=== PATIENT | female | born 1960 | race Two or more races ===

== ENCOUNTER 2024-04-28 01:29 | Inpatient (IN) | payer MEDICAID, SELFPAY ==
[2024-04-28] VITALS (8 sets, daily range): BP systolic 100–156; BP diastolic 65–89; PULSE 75–109; RESP 17–20; TEMP 35.9–36.7; O2SAT 92–100; BMI 24.9
--- NOTE | 2024-04-28 01:50 | EDNOTE_ITS ---
ED General RME/HPI General Chief complaint: Abdominal Pain Stated complaint: SEVERE ABD PAIN X30 MINS/VOMITING Time Seen by Provider: 04/28/24 01:46 Arrival date/time: 04/28/24 01:29 RME / HPI RME / HPI narrative: This section includes all my notes and documentations, including HPI, PE, and ED course. Kenneth Roca MD HPI: 63yo female with pmhx HTN brought in by her daughter presents to the ED for a chief complaint of lower abdominal pain x 30 minutes [employer]. Patient's daughter states the patient started complaining of severe lower abdominal pain 30 minutes [employer]UNDR[employer] HOU[employer]KEEPING [employer]IDE, reporting associated N/V. She states the patient had a small bowel movement prior to vomiting. She denies any fever, chills or any other associated symptoms. No other complaints reported. ROS: Respiratory: negative except as documented in HPI. Gastrointestinal: negative except as documented in HPI. Genitourinary: negative except as documented in HPI. Musculoskeletal: negative except as documented in HPI. Skin: negative except as documented in HPI. Neurological: negative except as documented in HPI. Physical Exam: General: Alert and oriented. In severe pain distress. Eyes: Conjunctivae and lids clear. ENT: No nasal congestion. Neck: Supple. Heart: RRR. Lungs: No respiratory distress. Good air movement. No rhonchi, wheezing, rales. Abdomen: Soft and severe diffuse tenderness. Decreased bowel sounds. No distension. No rebound or guarding. Back: No CVA tenderness. Skin: Warm and dry. Neuro: Alert and oriented X 3. Diagnostic tests remarkable for regional ileitis. Treatment here included Zofran and Dilaudid and Solumedrol. 0549: Discussed case with [Dr. Bautista] from [GI] regarding [consultation]. Discussed patients ED course, exam findings, labs, and radiology results. Recommended admission and will consult. 0555: Discussed case with our Hospitalist service regarding admission. Discussed patients ED course, exam findings, labs, and radiology results. Will accept the patient. Related Data Home Medications ?Medication ?Instructions ?Recorded ?Confirmed atorvastatin 20 mg tablet 20 mg PO HS 05/04/23 05/04/23 losartan 25 mg tablet 25 mg PO QDAY 05/04/23 05/04/23 Allergies Allergy/AdvReac Type Severity Reaction Status Date / Time No Known Allergies Allergy Verified 05/04/23 12:02 Review of Systems Review of Systems Systems Reviewed: All systems reviewed, normal except as documented Past Medical History Past Medical History NEUROLOGIC: Negative Neurological Disorders or Seizures CARDIAC: Positive Cardiac Disorders, Hypercholesterolemia and Hypertension; Negative Congestive Heart Failure RESPIRATORY: Negative Chronic Obstructive Pulmonary Disease (COPD) GASTROINTESTINAL: Negative Gastrointestinal Disorders GENITOURINARY: Negative Genitourinary Disorders or Renal Disease MUSCULOSKELETAL: Positive Musculoskeletal Disorders and Arthritis ENDOCRINE: Positive Endocrine Disorders and Diabetes Mellitus Type 2 (NO MEDS/DIET CONTROLLED); Negative Diabetes Mellitus Type 1 HEMATOLOGIC: Negative Blood Disorders OTHER HISTORY: Positive Chicken Pox, Measles and Mumps; Negative Autoimmune Disease, Blood Transfusions, Anesthesia Reactions or Cancer Social History SMOKING STATUS: Never smoker ED Exam Narrative Physical exam: As noted in HPI. Course Quality Measures none Orders Category Date Time Status COVID-19 Screening Questionnaire NOW Care 04/28/24 05:[address] Screening NOW Care 04/28/24 01:52 Active Decision to Admit X1 Care 04/28/24 05:59 Completed Saline [Insert IV] NOW Care 04/28/24 01:51 Active Straight [In and Out Catheter] X1 Care 04/28/24 01:51 Completed Consult to Gastroenterology Stat Cons 04/28/24 05:[address] abdomen pelvis w con Stat Exams 04/28/24 01:52 Completed Amylase Stat Lab 04/28/24 01:58 Completed C-Reactive Protein Stat Lab 04/28/24 01:58 Completed CBC Stat Lab 04/28/24 01:58 Completed CMP [Comprehensive Metabolic Panel] Stat Lab 04/28/24 01:58 Completed Drug Screen,Urine Stat Lab 04/28/24 04:47 Completed Lipase Stat Lab 04/28/24 01:58 Completed Magnesium Stat Lab 04/28/24 01:58 Completed Procalcitonin Stat Lab 04/28/24 01:58 Completed Sed Rate (ESR) Stat Lab 04/28/24 01:58 Completed UA [Urinalysis] Stat Lab 04/28/24 04:47 Completed HYDROmorphone INJ [Dilaudid Inj] Med 04/28/24 05:56 Discontinued 1 mg IVP X1 ONE HYDROmorphone INJ [Dilaudid Inj] Med 04/28/24 01:51 Discontinued 2 mg IM X1 ONE KCL 10% Liq UDC 15 ML Med 04/28/24 02:52 Discontinued 40 meq PO X1 ONE MethylPREDNISolone.* [SoluMEDROL Inj] Med 04/28/24 05:49 Discontinued 125 mg IVP X1 ONE Morphine Inj Med 04/28/24 03:26 Discontinued 4 mg IVP X1 ONE Ondansetron Inj [Zofran Inj] Med 04/28/24 01:51 Discontinued 4 mg IV X1 ONE Piper/Tazo Inj [Zosyn Inj] 3.375 gm Med 04/28/24 05:49 Discontinued Sodium Chloride 0.9% (P) [Ns 0.9% (P)] 50 ml IV X1 Vital Signs Vital signs: Vital Signs Temperature 98 F 04/28/24 01:48 Pulse Rate 78 04/28/24 01:48 Respiratory Rate 18 04/28/24 01:48 Blood Pressure 156/87 H 04/28/24 01:48 Pulse Oximetry (%) 99 04/28/24 01:48 Oxygen Delivery Method Room Air 04/28/24 01:48 Pulse ox is 99% on room air, which is normal according to my interpretation. [facility] Patient data External records reviewed:: [facility] previous records (Per chart review, patient has no relevant previous) Clinical information provided by:: family Social determinants that could affect healthcare access:: none Patient has the following chronic illnesses:: HTN How is presenting disease/condition affected by chronic disease/condition?: u neffected by Evaluation data The following diagnostics were reviewed and interpreted by me:: lab results and radiology exam(s) Lab and/or radiology exams considered but not ordered:: none Interpretation Summary: CT scan of the abdomen and pelvis with intravenous contrast (axial sections with sagittal and coronal reformats) April 28, 2024 0352 hours Clinical History: Severe abdominal pain, difficult to localize. Comparison: No prior study is available for comparison. Findings: Bibasilar dependent atelectasis is present. There is a calcified nodule in the right lower lobe, measuring 5 mm. The liver, gallbladder, pancreas, spleen, kidneys and adrenals are unremarkable. No evidence of bowel obstruction. There is thickening of the small bowel wall with mucosal enhancement and associated mesenteric fat stranding. A moderate amount of fecal material is present in the colon. The appendix is within normal limits (coronal image 87/155). There are multiple colonic diverticula without evidence of diverticulitis. There is no mesenteric or retroperitoneal adenopathy. The urinary bladder is unremarkable. The uterus is unremarkable. There is mild ascites. There is no free air. Degenerative changes are identified in the spine. Impression: 1. Findings consistent with severe ileitis with significant mesenteric inflammation and free fluid. 2. No evidence of bowel obstruction, free air or abscess. 3. Other findings as described above. This report has been electronically signed by: Juan Contreras MD. Medications Medications considered but not ordered:: none Medication administrations:: Medication Administration History Acetaminophen (Acetaminophen 325 Mg Tablet) 650 mg PO Q6H PRN PRN Reason: Mild Pain 1-3 or Fever >100.4 Stop: 05/28/24 06:32 Hydrocodone Bitart/Acetaminophen (Hydrocodone/Apap 5/325 Tablet) 1 tab PO Q4HR PRN PRN Reason: PAIN SCALE 4-6 (Moderate Stop: 05/03/24 06:32 Atorvastatin Calcium (Atorvastatin Calcium 20 Mg Tablet) 20 mg PO HS [facility] Stop: 05/28/24 20:59 Heparin Sodium (Porcine) (Heparin Sod Inj 5000 Unit/Ml Vial) 5,000 unit SC Q8HR [facility] Stop: 05/12/24 06:44 Last Admin: 04/28/24 13:10 Dose: 5,000 unit Documented By: ROSIE Co-signed By: RAFAEL Admin: 04/28/24 08:10 Dose: 5,000 unit Documented By: PETER Co-signed By: ZUHAIR Hydromorphone HCl (Hydromorphone Inj 2 Mg/Ml Vial) 1 mg IVP Q4HR PRN PRN Reason: PAIN SCALE 7-10 (Severe Stop: 05/03/24 06:32 Last Admin: 04/28/24 16:06 Dose: 1 mg Documented By: ROSIE Sodium Chloride (Ns) 1,000 mls @ 70 mls/hr IV .[id number] [facility] Stop: 05/28/24 06:44 Last Admin: 04/28/24 08:09 Dose: 70 mls/hr Documented By: PETER Piperacillin/Tazobactam/Dextrose (Zosyn) 50 mls @ 12.5 mls/hr IV Q8HR [facility] Stop: 05/05/24 11:29 Last Admin: 04/28/24 11:46 Dose: 12.5 mls/hr Documented By: ROSIE Losartan Potassium (Losartan Potassium 25 Mg Tablet) 25 mg PO QDAY [facility] Stop: 05/28/24 08:59 Last Admin: 04/28/24 08:10 Dose: 25 mg Documented By: ARF Methylprednisolone Sodium Succinate (Methylprednisolone Sod Succ 40 Mg Vial) 40 mg IVP Q12HR [facility] Stop: 05/05/24 20:59 Ondansetron HCl (Ondansetron Inj 2 Mg/Ml Inj 2 Ml) 4 mg IV Q6H PRN; Protocol PRN Reason: NAUSEA OR VOMITING Stop: 05/28/24 06:32 Pantoprazole Sodium (Pantoprazole 40 Mg Tablet) 40 mg PO QDAY [facility] Stop: 05/28/24 08:59 Last Admin: 04/28/24 08:10 Dose: 40 mg Documented By: ARF Discontinued Medications Hydromorphone HCl (Hydromorphone Inj 2 Mg/Ml Vial) 2 mg IM X1 ONE Stop: 04/28/24 01:52 Last Admin: 04/28/24 02:01 Dose: 2 mg Documented By: JUNE Hydromorphone HCl (Hydromorphone Inj 2 Mg/Ml Vial) 1 mg IVP X1 ONE Stop: 04/28/24 05:57 Last Admin: 04/28/24 06:07 Dose: 1 mg Documented By: JUNE Hydromorphone HCl (Hydromorphone Inj 2 Mg/Ml Vial) 1 mg IVP Q4HR PRN PRN Reason: PAIN Stop: 05/03/24 06:32 Piperacillin Sod/Tazobactam (Sod 3.375 gm/ Sodium Chloride) 50 mls @ 100 mls/hr IV X1 ONE Stop: 04/28/24 06:18 Last Infusion: 04/28/24 06:54 Dose: Infused Documented By: Admin: 04/28/24 06:17 Dose: 100 mls/hr Documented By: JUNE Methylprednisolone Sodium Succinate (Methylprednisolone Sod Succ 62.5 Mg/Ml 2ml Vial) 125 mg IVP X1 ONE Stop: 04/28/24 05:50 Last Admin: 04/28/24 06:13 Dose: 125 mg Documented By: JUNE Morphine Sulfate (Morphine Sulf Inj 10 Mg/Ml Vial) 4 mg IVP X1 ONE Stop: 04/28/24 03:27 Last Admin: 04/28/24 03:35 Dose: 4 mg Documented By: JUNE Ondansetron HCl (Ondansetron Inj 2 Mg/Ml Inj 2 Ml) 4 mg IV X1 ONE; Protocol Stop: 04/28/24 01:52 Last Admin: 04/28/24 02:02 Dose: 4 mg Documented By: JUNE Polyethylene Glycol/Electrolytes ([place] Morales/Nahco3/Efren/Peg (Golytely) 4,000 Ml Btl) 4,000 ml PO X1 ONE Stop: 04/28/24 06:42 Last Admin: 04/28/24 09:04 Dose: 1 bottle Documented By: ROSIE Potassium Chloride (Potassium Chloride 10% 20 Meq/15 Ml Udc) 40 meq PO X1 ONE Stop: 04/28/24 02:53 Last Admin: 04/28/24 03:35 Dose: 40 meq Documented By: JUNE Potassium Chloride (Potassium Chloride 20 Meq Tabcr) 40 meq PO X1 ONE Stop: 04/28/24 08:50 Last Admin: 04/28/24 09:04 Dose: 40 meq Documented By: ROSIE Potassium Chloride (Potassium Chloride 10% 20 Meq/15 Ml Udc) 40 meq PO X1 ONE Stop: 04/28/24 13:01 Last Admin: 04/28/24 13:10 Dose: 40 meq Documented By: ROSIE see above Consultations Consultation(s) initiated? (list below): Yes Diagnosis Differential Diagnosis ED Complaint MDM: constipation, SBO, dehydration, electrolyte abnormality Most likely diagnosis given after review of the tests above:: see below Admission Indicated Admission indicated?: not indicated Explain why admission is indicated or not indicated:: See HPI. Admission Request Was there a request for admission?: Yes Admission Attestation Admission request attestation: Discussed case with [] from Hospitalist service regarding admission. Discussed patients ED course, exam findings, labs, and radiology results. The Hospitalist [agrees,declines] to accept the patient for admission. Disposition Plan Disposition Plan: Admit Medical Decision Making Differential Diagnosis Differential Diagnosis: constipation, SBO, dehydration, electrolyte abnormality Lab Data 04/28/24 01:58 04/28/24 01:58 Labs: Lab Results 04/28/24 04/28/24 Range/Units 01:58 04:47 WBC 11.2 H (3.6-11.0) Thou/mm3 RBC 5.30 H (4.00-5.20) Miln/mm3 Hgb 13.9 (12.0-16.0) g/dL Hct 42.3 (36.0-46.0) % MCV 80 (80-100) fL MCH 26.2 (25.0-35.0) pg MCHC 32.9 (31.0-37.0) g/dl RDW Std Deviation 38.5 (36.4-46.3) fL Plt Count 271 (140-440) Thou/mm3 Neut % (Auto) 65 (37-80) % Lymph % (Auto) 27 (10-50) % Pike % (Auto) 6 (0-12) % Eos % (Auto) 0 (0-10) % Baso % (Auto) 0 (0-2.5) % Neut # (Auto) 7.4 (1.8-7.7) Thou/mm3 Lymph # (Auto) 3.1 (1.0-4.8) Thou/mm3 Pike # (Auto) 0.7 (0.0-0.8) Thou/mm3 Eos # (Auto) 0.1 (0.0-0.5) Thou/mm3 Baso # (Auto) 0.0 (0.0-0.2) Thou/mm3 Immature Gran # (Auto) 0.03 H (0.00-0.00) Thou/mm3 Absolute Nucleated RBC 0.00 (0.00-0.00) Thou/mm3 Immature Gran % 0 (0-0) % Nucleated RBC % 0 (0) /100 WBC ESR 19 (0-30) mm/hr Sodium 138 (136-145) mMol/L Potassium 3.0 L (3.4-5.1) mMol/L Chloride 106 (98-107) mMol/L Carbon Dioxide 23.2 (20.0-31.0) mMol/L Anion Gap 9 (7-16) BUN 21 (9-23) mg/dL Creatinine 0.7 (0.6-1.3) mg/dL Estim Creat Clear Calc 78.8 (>60) mL/min eGFR > 60 (60 - ) See Note BUN/Creatinine Ratio 30 H (12-20) Ratio Glucose 169 H (74-106) mg/dL Calculated Osmolality 282 (275-295) Calcium 9.9 (8.3-10.6) mg/dL Corrected Calcium 9.9 (8.5-10.1) mg/dL Magnesium 2.1 (1.6-2.6) mg/dL Total Bilirubin 0.9 (0.3-1.2) mg/dL AST 23 (0-34) U/L ALT 18 (10-49) U/L Alkaline Phosphatase 115 (46-116) U/L C-Reactive Prot, Quant < 0.4 (0.0-0.9) mg/dL Total Protein 7.3 (5.7-8.2) gm/dL Albumin 4.9 H (3.4-4.8) gm/dL Globulin 2.4 (2.3-3.5) gm/dL Albumin/Globulin Ratio 2.0 (1.2-2.2) Amylase 134 H (30-118) U/L Lipase 39 (12-53) U/L Procalcitonin 0.09 (0.0-0.49) ng/ml Ur Collection Type Clean Catch Urine Color Lt-Yellow (Lt Yel-Yel) Urine Clarity Clear (Clear/Hazy) Urine pH 5.0 (5.0-7.0) Ur Specific Gatzke 1.035 (1.001-1.035) Urine Protein Negative (Neg - Trace) Urine Glucose (UA) Negative (Negative) Urine Ketones 2+ A (Negative) Urine Blood Negative (Negative) Urine Nitrite Negative (Negative) Urine Bilirubin Negative (Negative) Urine Urobilinogen (Auto) Negative (0.0-1.0) mg/dL Ur Leukocyte Esterase Negative (Negative) Urine RBC 0 (0-3) /hpf Urine WBC 0 (0-5) /hpf Ur Squamous Epith Cells < 1 (0-5) /hpf Urine Bacteria None (None) Urine Opiates Screen Positive A (Negative) Urine Fentanyl Screen Negative (Negative) Ur Barbiturates Screen Negative (Negative) U Amphetamin/Meth Scrn Negative (Negative) U Benzodiazepines Scrn Negative (Negative) U Cocaine Metab Screen Negative (Negative) U Marijuana (THC) Screen Negative (Negative) Discharge Plan Plan Patient Disposition: Admit Acute Care w/in Hospital Problem List Clinical Impression: Ileitis, regional
--- NOTE | 2024-04-28 01:52 | XR_ITS ---
Examination: CT abdomen with intravenous contrast CT pelvis with intravenous contrast 2-D coronal reconstructions 2-D sagittal reconstructions Date and time of exam:April 28, 2024 0352 hrs. Indications: Severe abdominal pain beginning 30 minutes ago. CTDI: vol (mGy) 5.73 DLP: (mGycm) 284 Technique: Multiple axial sections of the abdomen and pelvis have been obtained. 64 slice high-resolution scanner used. 3 mm axial sections have been obtained, post intravenous injection 60 cc [id number] 2-D sagittal, coronal reconstructions obtained. Low dose protocols were performed. One or more of the following dose reduction techniques were used; automated exposure control, adjustment of the mA and/or KV according to patient size, use of iterative reconstruction technique. Findings: 5 mm calcified granuloma right middle lobe No focal liver or splenic lesions Mild fluid subcapsular to the liver and adjacent to the spleen No pancreatic mass No gallstones Normal adrenal glands No renal or ureteral calculi, no hydronephrosis Mild free fluid in the abdomen Multiple abnormal loops of small bowel, distended, wall thickening with edema adjacent to the bowel loops No definite pneumoperitoneum Normal appendix Colonic diverticulosis Atrophic uterus No adnexal mass Urinary bladder intact Moderate osteopenia Impression: Markedly abnormal small bowel loops, mildly distended, prominent wall thickening with edema adjacent to multiple small bowel loops, differential would include severe enteritis such as Crohn's disease, ischemic small bowel not excluded, clinical correlation advised, consider surgical consultation
[2024-04-28] MEDS: HYDROmorphone INJ 2 MG/ML VIAL IM (02:01)
[2024-04-28] MEDS: ONDANSETRON INJ 2 MG/ML INJ 2 ML 4 MG IV ×2 (02:02→20:11)
[2024-04-28 02:26] LABS: Basophils % (Auto) 0 % (0-2.5); Eosinophils # (Auto) 0.1 Thou/mm3 (0.0-0.5); Eosinophils % (Auto) 0 % (0-10); Hematocrit 42.3 % (36.0-46.0); Hemoglobin 13.9 g/dL (12.0-16.0); Immature Granulocytes % (Auto) 0 % (0-0); Immature Granulocytes Auto 0.03 Thou/mm3 (0.00-0.00); Lymphocytes # (Auto) 3.1 Thou/mm3 (1.0-4.8); Lymphocytes % (Auto) 27 % (10-50); Mean Corpuscular HGB Conc 32.9 g/dl (31.0-37.0); Mean Corpuscular Hemoglobin 26.2 pg (25.0-35.0); Mean Corpuscular Volume 80 fL (80-100); Monocytes # (Auto) 0.7 Thou/mm3 (0.0-0.8); Monocytes % (Auto) 6 % (0-12); Neutrophils # (Auto) 7.4 Thou/mm3 (1.8-7.7); Neutrophils % (Auto) 65 % (37-80); Nucleated Red Blood Cell % 0 /100 WBC (0); Platelet Count 271 Thou/mm3 (140-440); RDW Standard Deviation 38.5 fL (36.4-46.3); White Blood Count 11.2 Thou/mm3 (3.6-11.0)
[2024-04-28 02:44] LABS: Alanine Aminotransferase 18 U/L (10-49); Albumin, Serum 4.9 gm/dL (3.4-4.8); Alkaline Phosphatase 115 U/L (46-116); Amylase 134 U/L (30-118); Anion Gap 9 (7-16); Aspartate Amino Transferase 23 U/L (0-34); BUN/Creatinine Ratio 30 Ratio (12-20); Bilirubin,Total 0.9 mg/dL (0.3-1.2); Blood Urea Nitrogen 21 mg/dL (9-23); Calcium 9.9 mg/dL (8.3-10.6); Calcium (Corrected) 9.9 mg/dL (8.5-10.1); Carbon Dioxide 23.2 mMol/L (20.0-31.0); Chloride 106 mMol/L (98-107); Creatinine (Component) 0.7 mg/dL (0.6-1.3); Estimated Creatinine Clearance 78.8 mL/min (>60); Globulin 2.4 gm/dL (2.3-3.5); Glucose 169 mg/dL (74-106); Lipase 39 U/L (12-53); Magnesium 2.1 mg/dL (1.6-2.6); Osmolality,Calculated 282 (275-295); Sodium 138 mMol/L (136-145); Total Protein 7.3 gm/dL (5.7-8.2); eGFR > 60 See Note
[2024-04-28] MEDS: MORPHINE SULF INJ 10 MG/ML VIAL 4 MG IVP (03:35)
[2024-04-28] MEDS: POTASSIUM CHLORIDE 10% 20 MEQ/15 ML UDC 40 MEQ PO ×2 (03:35→13:10)
[2024-04-28 04:59] LABS: Collection Type, Urine Clean Catch; RBC,Urine 0 /hpf (0-3); WBC,Urine 0 /hpf (0-5)
[2024-04-28 05:16] LABS: Bilirubin,Urine Negative (Negative); Blood,Urine Negative (Negative); Clarity,Urine Clear (Clear/Hazy); Color,Urine Lt-Yellow (Lt Yel-Yel); Glucose, Urine Negative (Negative); Ketones,Urine 2+ (Negative); Leukocyte Esterase,Urine Negative (Negative); Nitrite,Urine Negative (Negative); Protein,Urine Negative (Neg - Trace); Squamous Epithelial Cell,Urine < 1 /hpf (0-5); Urobilinogen,Urine Negative mg/dL (0.0-1.0)
[2024-04-28 05:26] LABS: Specific Gravity,Urine 1.035 (1.001-1.035)
--- NOTE | 2024-04-28 05:45 | PRELIM_ITS ---
CT scan of the abdomen and pelvis with intravenous contrast (axial sections with sagittal and coronal reformats) April 28, 2024 0352 hoursClinical History: Severe abdominal pain, difficult to localiz e.Comparison: No prior study is available for comparison. Findings:Bibasilar dependent atelectasis i s present. There is a calcified nodule in the right lower lobe, measuring 5 mm.The liver, gallbladder , pancreas, spleen, kidneys and adrenals are unremarkable.No evidence of bowel obstruction. There is thickening of the small bowel wall with mucosal enhancement and associated mesenteric fat stranding. A moderate amount of fecal material is present in the colon. The appendix is within normal limits (c oronal image 87/155). There are multiple colonic diverticula without evidence of diverticulitis. Ther e is no mesenteric or retroperitoneal adenopathy.The urinary bladder is unremarkable. The uterus is u nremarkable. There is mild ascites. There is no free air.Degenerative changes are identified in the s pine. Impression:1. Findings consistent with severe ileitis with significant mesenteric inflammation and free fluid. 2. No evidence of bowel obstruction, free air or abscess. 3. Other findings as descri bed above. Report Electronically Signed By: Juan Contreras 04/28/2024 5:44:55 AM [EST]
[2024-04-28] MEDS: HYDROmorphone INJ 2 MG/ML VIAL 1 MG IVP ×3 (06:07→20:11)
[2024-04-28] MEDS: MethylPREDNISolone SOD SUCC 62.5 MG/ML 2ML VIAL 125 MG IVP (06:13)
[2024-04-28 06:15] LABS: Sed Rate (ESR) 19 mm/hr (0-30)
[2024-04-28] MEDS: PIPER/TAZO INJ 3.375 GM in SODIUM CHLORIDE 0.9% (P) 50 ML IV (06:17)
[2024-04-28 06:42] LABS: Procalcitonin 0.09 ng/ml (0.0-0.49)
--- NOTE | 2024-04-28 07:08 | PD.ADDHP ---
Addendum History & Physical Addendum Date of report being addended: 04/28/24 Narrative: 63-year-old female with history of hypertension and hyperlipidemia who presented with a chief complaint of nausea and vomiting. She was found to have severe ileitis and dehydration. Severe ileitis: Likely in setting of gastroenteritis. Started the patient on IV fluids. Management of nausea/vomiting/pain as needed. Contacted GI in the ED: May plan for colonoscopy. Will keep the patient on clear liquid diet. Hypertension: Resume home medication.
[2024-04-28] MEDS: SODIUM CHLORIDE 0.9% 1000 ML 1,000 ML 70 ML IV ×2 (08:09→21:45)
[2024-04-28] MEDS: HEPARIN SOD INJ 5000 UNIT/ML VIAL SC ×3 (08:10→21:46)
[2024-04-28] MEDS: PANTOPRAZOLE 40 MG TABLET PO (08:10)
[2024-04-28] MEDS: LOSARTAN POTASSIUM 25 MG TABLET PO (08:10)
--- NOTE | 2024-04-28 08:19 | PD.RESHP ---
Documentation for date of: 04/28/24 [facility] History of Present Illness History of present illness: cc: abdominal pain Patient is a 63-year-old female with a past medical history of hypertension & hyperlipidemia who presented to the emergency room from home with a chief complaint of diffuse abdominal pain. Patient rates pain 10 out of 10. Complaining of pain in all 4 quadrants but especially tender on left lower quadrant. Patient denied diarrhea, hematochezia or melena. Denied eating anything unusual such as leftover rice or male left sitting outside. Patient stated symptoms began yesterday with 2 episodes of emesis mostly food content that appeared watery. Patient denied hematemesis or hemoptysis. Stated symptoms has happened before, previous abdominal pain in March but pain was more mild. Denied fever chills. Denied chest pain. Patient had a recent upper respiratory viral illness 2 weeks ago. Patient works at a cafeteria for school. Admitted on 04/28/2024 for gastroenteritis and intractable abdominal pain. ER course: Vitals: Temperature 98 HR 78, RR 18, BP 156/87, SpO2 99% RA CBC (04/28/2024): WBC 11.2 CMP (04/28/2024): Na 138, K 3.0, BUN 21, Cr 0.7, Glucose 169 Abdomen/Pelvis (04/28/2024): Mild fluid subcapsular to the liver and adjacent to the spleen, No pancreatic mass, No gallstones, Mild free fluid in the abdomen, Multiple abnormal loops of small bowel, distended, wall thickening with edema adjacent to the bowel loops, Colonic diverticulosis K 40 meq PO X 1, Methylpredinisolone 125 mg IVP X [address]. Bautista consulted from ER PMH: -HTN -HLD -Diverticulosis -recent Upper Viral Infection, seen by PCP as outpatient Past Surgical History: Colonoscopy 2022-Diverticulosis Home Medication: Atorvastatin Losartan Social History: Denied Alcohol Use Denied illicit drug use Never smoker Allergies: None Code Status: Full Code Review of Systems Review of Systems Narrative Review of Systems: General appearance: NO weight change, NO fatigue, YES weakness, NO fever, NO chills, NO night sweats, No cough Skin: NO rash, NO itching, NO sores, NO moles HEENT: NO Trauma, NO nausea, YES vomiting mostly food content x2 episodes on 04/27/2024, NO visual changes, NO blurry vision, NO double vision, NO tinnitus, NO vertigo, NO ear discharge, NO rhinorrhea, NO stuffiness, NO sneezing, NO allergy, NO epistaxis. NO Hoarseness, NO sore throat, NO swollen neck. Cardiac: NO Palpitations, NO dyspnea on exertion, NO orthopnea, NO paroxysmal nocturnal dyspnea, NO edema Respiratory: NO Shortness of Breath, NO Wheezing, NO Cough, NO Sputum, NO hemoptysis GI:Yes appetite, NO nausea, YES vomiting-mostly food content, NO dysphagia, NO changes in bowel frequency, NO stool color, NO diarrhea, NO constipation, NO hemetemesis, NO hemorrhoids, NO melena, NO hematechezia, YES abdominal pain, NO jaundice Renal: NO frequency, NO hesitancy, NO urgency, NO hematuria, NO nocturia, NO incontinence MSK: NO muscle weakness, NO gout, NO arthritis, NO muscle stiffness Neuro: NO headaches, NO tremors, NO weakness, NO paralysis, NO seizures, NO loss of consciousness, NO numbness. Hem: NO anemia, NO easy bruising/bleeding, NO petechiae, NO purpura Endo: NO heat/cold intolerance, NO excessive sweating, NO polyuria, NO polydipsia, NO polyphagia, NO thyroid problems, NO diabetes Pysch: NO mood, NO anxiety, NO depression Exam Vital Signs Temp Pulse Resp BP Pulse Ox O2 Del Method O2 Flow Rate 97.9 F 79 18 140/89 H 100 Room Air 2 04/28/24 06:21 04/28/24 08:10 04/28/24 06:21 04/28/24 08:10 04/28/24 07:53 04/28/24 06:21 04/28/24 07:53 Narrative Exam General Appearance: Alert & Oriented X3, well-nourished female who is lying in bed in acute discomfort HEENT: Skull symmetrical and atraumatic. Conjunctivae pink and moist. Pupils equal, round, reactive to light and accommodation (PERRL). External ear without lesion or discharge. Straight, nares patient, dry mucosa pink, no discharge. No thyroid nodule appreciated. No cervical lymphadenopathy. Cardio: Normal Rate and Rhythm with S1 and S2 heart sounds. No murmurs or extra heart sounds auscultated. No bruits on carotid auscultation. No peripheral edema or cyanosis. Lungs: Symmetric with good expansion. Chest and back non-tender. Breath sounds vesicular without crackles, wheezing or rhonchi Abdomen: diffuse tender, but increased at left lower quadrant, Non-distended, Normal Reactive bowel sounds Neuro: Alert, cooperative, oriented to person, place, and time. Speech clear. CN grossly intact. Upper motor strength 5/5 and Lower motor strength 5/5. Sensation intact. Results: Labs 04/28/24 01:58 04/28/24 01:58 Labs: Short CBC 04/28/24 Range/Units 01:58 WBC 11.2 H (3.6-11.0) Thou/mm3 Hgb 13.9 (12.0-16.0) g/dL Hct 42.3 (36.0-46.0) % Plt Count 271 (140-440) Thou/mm3 BMP 04/28/24 01:58 Sodium 138 Potassium 3.0 L Chloride 106 Carbon Dioxide 23.2 BUN 21 Creatinine 0.7 Glucose 169 H Calcium 9.9 Liver Function 04/28/24 Range/Units 01:58 Total Bilirubin 0.9 (0.3-1.2) mg/dL AST 23 (0-34) U/L ALT 18 (10-49) U/L Alkaline Phosphatase 115 (46-116) U/L Albumin 4.9 H (3.4-4.8) gm/dL Urine 04/28/24 Range/Units 04:47 Urine Color Lt-Yellow (Lt Yel-Yel) Urine Clarity Clear (Clear/Hazy) Urine pH 5.0 (5.0-7.0) Ur Specific [place] 1.035 (1.001-1.035) Urine Protein Negative (Neg - Trace) Urine Glucose (UA) Negative (Negative) Quality Measures Quality Measures none Medications Home Medications and Allergies Home Medications ?Medication ?Instructions ?Recorded ?Confirmed ?Type atorvastatin 20 mg tablet 20 mg PO HS 05/04/23 05/04/23 History losartan 25 mg tablet 25 mg PO QDAY 05/04/23 05/04/23 History Allergies Allergy/AdvReac Type Severity Reaction Status Date / Time No Known Allergies Allergy Verified 05/04/23 12:02 Visit Medications Acetaminophen (Acetaminophen 325 Mg Tablet) 650 mg PO Q6H PRN PRN Reason: Mild Pain 1-3 or Fever >100.4 Stop: 05/28/24 06:32 Hydrocodone Bitart/Acetaminophen (Hydrocodone/Apap 5/325 Tablet) 1 tab PO Q4HR PRN PRN Reason: PAIN SCALE 4-6 (Moderate Stop: 05/03/24 06:32 Atorvastatin Calcium (Atorvastatin Calcium 20 Mg Tablet) 20 mg PO HS REPLACED BY [facility] Stop: 05/28/24 20:59 Heparin Sodium (Porcine) (Heparin Sod Inj 5000 Unit/Ml Vial) 5,000 unit SC Q8HR G[facility]RET Stop: 05/12/24 06:44 Last Admin: 04/28/24 08:10 Dose: 5,000 unit Hydromorphone HCl (Hydromorphone Inj 2 Mg/Ml Vial) 1 mg IVP Q4HR PRN PRN Reason: PAIN Stop: 05/03/24 06:32 Sodium Chloride (Ns) 1,000 mls @ 70 mls/hr IV .[id number] REPLACED BY [facility] Stop: 05/28/24 06:44 Last Admin: 04/28/24 08:09 Dose: 70 mls/hr Losartan Potassium (Losartan Potassium 25 Mg Tablet) 25 mg PO QDAY REPLACED BY [facility] Stop: 05/28/24 08:59 Last Admin: 04/28/24 08:10 Dose: 25 mg Ondansetron HCl (Ondansetron Inj 2 Mg/Ml Inj 2 Ml) 4 mg IV Q6H PRN; Protocol PRN Reason: NAUSEA OR VOMITING Stop: 05/28/24 06:32 Pantoprazole Sodium (Pantoprazole 40 Mg Tablet) 40 mg PO QDAY REPLACED BY [facility] Stop: 05/28/24 08:59 Last Admin: 04/28/24 08:10 Dose: 40 mg Discontinued Medications Hydromorphone HCl (Hydromorphone Inj 2 Mg/Ml Vial) 2 mg IM X1 ONE Stop: 04/28/24 01:52 Last Admin: 04/28/24 02:01 Dose: 2 mg Hydromorphone HCl (Hydromorphone Inj 2 Mg/Ml Vial) 1 mg IVP X1 ONE Stop: 04/28/24 05:57 Last Admin: 04/28/24 06:07 Dose: 1 mg Piperacillin Sod/Tazobactam (Sod 3.375 gm/ Sodium Chloride) 50 mls @ 100 mls/hr IV X1 ONE Stop: 04/28/24 06:18 Last Infusion: 04/28/24 06:54 Dose: Infused Methylprednisolone Sodium Succinate (Methylprednisolone Sod Succ 62.5 Mg/Ml 2ml Vial) 125 mg IVP X1 ONE Stop: 04/28/24 05:50 Last Admin: 04/28/24 06:13 Dose: 125 mg Morphine Sulfate (Morphine Sulf Inj 10 Mg/Ml Vial) 4 mg IVP X1 ONE Stop: 04/28/24 03:27 Last Admin: 04/28/24 03:35 Dose: 4 mg Ondansetron HCl (Ondansetron Inj 2 Mg/Ml Inj 2 Ml) 4 mg IV X1 ONE; Protocol Stop: 04/28/24 01:52 Last Admin: 04/28/24 02:02 Dose: 4 mg Polyethylene Glycol/Electrolytes ([place]/Nahco3/Efren/Peg (Golytely) 4,000 Ml Btl) 4,000 ml PO X1 ONE Stop: 04/28/24 06:42 Potassium Chloride (Potassium Chloride 10% 20 Meq/15 Ml Udc) 40 meq PO X1 ONE Stop: 04/28/24 02:53 Last Admin: 04/28/24 03:35 Dose: 40 meq Assessment & Plan Plan Patient is a 63-year-old female with a past medical history of hypertension & hyperlipidemia who was admitted on 04/28/2024 for gastroenteritis and intractable abdominal pain. #intractable abdominal pain #Mild Leukocytosis Etiology: given recent upper viral infection, gastroenterititis can not be ruled out. DDx: Inflammatory Bowel Disease, consider Crohns's vs acute mesenteric ischemia vs diverticulitis given location and history on previous Colonoscopy. Diagnostic: CBC (04/28/2024): WBC 11.2 CMP (04/28/2024): Na 138, K 3.0, BUN 21, Cr 0.7, Glucose 169 Abdomen/Pelvis (04/28/2024): Mild fluid subcapsular to the liver and adjacent to the spleen, No pancreatic mass, No gallstones, Mild free fluid in the abdomen, Multiple abnormal loops of small bowel, distended, wall thickening with edema adjacent to the bowel loops, Colonic diverticulosis Plan -Golytely -Follow up labs for 04/29/2024, consider evening K -Tylenol 650 mg PO PRN -[place] 5 -Dilaudid 1 mg IVP Q4HR PRN -CRP pending -NPO -consider Stool testing -GI following, Dr. Bautista, appreciate recommendations. #HTN -resume home medication, Atorvastatin 20 mg PO HS #HLD -resume home medicaiton, Losartan 25 mg PO Qday #Incidential finding, Pulmonary granuloma Plan: 5 mm calcified granuloma right middle lobe, outpatient Health Maintenance: Disp: Pt is currently admitted to floors for further management of abdominal pain, awaiting pending colonoscopy FEN: NPO DVT: on subQ heparin Code: Full Code - The patient's plan was discussed with attending Dr. Zelalem Sanchez MD PGY1 Internal Medicine Attending Provider Attestation/Addendum I reviewed labs, imaging, EKG, home medications and prior available records. Face to face evaluation was performed by me. I have personally examined the patient and discussed assessment and plan with the IM team. I reviewed the resident note and agree with the plan with exceptions as below. See my H&P addendum in the separate note.
[2024-04-28 08:34] LABS: Lactate (Lactic Acid) 1.5 mMol/L (0.4-2.0)
[2024-04-28] MEDS: POTASSIUM CHLORIDE 20 mEq TABCR 40 MEQ PO (09:04)
[2024-04-28] MEDS: NA SU/NAHCO3/KC/PEG (Golytely) 4,000 ML BTL 4000 ML PO (09:04)
--- NOTE | 2024-04-28 11:19 | PD.RESPRO ---
Documentation for date of: 04/28/24 Subjective Subjective Interval history: Patient interviewed and examined at bedside this AM accompanied by her daughter. No acute overnight events. Patient on exam appeared very somnolent but was interactive. Spoke with GI service who recommended not to start golytely and to instead administer patient steroids, start Clear liquid diet, pip/tazo. Potassium 3.0, replaced with 40 KCL PO this am and again this afternoon. Most likely from poor PO intake, will continue to monitor with AM labs. Exam Vital Signs Temp Pulse Resp BP Pulse Ox O2 Del Method O2 Flow Rate 97.9 F 82 20 140/89 H 100 Room Air 1 04/28/24 06:21 04/28/24 09:39 04/28/24 09:39 04/28/24 08:10 04/28/24 09:39 04/28/24 06:21 04/28/24 09:39 Narrative Exam General: Not in any visible or apparent acute distress, sick appearing, somnolent but arousable to vocal stimuli and interactive HEENT: NC/AT, dry mucous membranes, oropharynx clear Neck: Supple, No masses, No JVD, normal range of motion CVS: S1S2 Regular rate and rhythm, No murmurs, rubs or gallops Lungs: Normal respiratory effort, no wheezing rhonchi or rales, CTAB Abd: Soft, no tenderness to palpation, non distended Ext: No edema, warm well perfused, normal tone and ROM, strength and sensation intact, cap refill less than 2, +2 dp equal bilaterally Skin: Intact, no rashes, no lesions, no erythema Neuro: AOx3, no gross focal neurological deficits Objective Labs 04/29/24 05:25 04/29/24 10:20 Labs: Laboratory Results - last 24 hr 04/28/24 04/28/24 04/28/24 01:58 04:47 08:25 WBC 11.2 H RBC 5.30 H Hgb 13.9 Hct 42.3 MCV 80 MCH 26.2 MCHC 32.9 RDW Std Deviation 38.5 Plt Count 271 Neut % (Auto) 65 Lymph % (Auto) 27 [place] % (Auto) 6 Eos % (Auto) 0 Baso % (Auto) 0 Neut # (Auto) 7.4 Lymph # (Auto) 3.1 [place] # (Auto) 0.7 Eos # (Auto) 0.1 Baso # (Auto) 0.0 Immature Gran # (Auto) 0.03 H Absolute Nucleated RBC 0.00 Immature Gran % 0 Nucleated RBC % 0 ESR 19 Sodium 138 Potassium 3.0 L Chloride 106 Carbon Dioxide 23.2 Anion Gap 9 BUN 21 Creatinine 0.7 Estim Creat Clear Calc 78.8 eGFR > 60 BUN/Creatinine Ratio 30 H Glucose 169 H Calculated Osmolality 282 Lactic Acid 1.5 Calcium 9.9 Corrected Calcium 9.9 Magnesium 2.1 Total Bilirubin 0.9 AST 23 ALT 18 Alkaline Phosphatase 115 Total Protein 7.3 Albumin 4.9 H Globulin 2.4 Albumin/Globulin Ratio 2.0 Amylase 134 H Lipase 39 Procalcitonin 0.09 Ur Collection Type Clean Catch Urine Color Lt-Yellow Urine Clarity Clear Urine pH 5.0 Ur Specific [place] 1.035 Urine Protein Negative Urine Glucose (UA) Negative Urine Ketones 2+ A Urine Blood Negative Urine Nitrite Negative Urine Bilirubin Negative Urine Urobilinogen (Auto) Negative Ur Leukocyte Esterase Negative Urine RBC 0 Urine WBC 0 Ur Squamous Epith Cells < 1 Urine Bacteria None Quality Measures Quality Measures none Assessment & Plan Assessment Current Active Medications: Generic Name Dose Route Start Last Admin Trade Name Freq PRN Reason Stop Dose Admin Acetaminophen 650 mg 04/28/24 06:33 Acetaminophen 325 Mg Tablet PO 05/28/24 06:32 Q6H PRN Mild Pain 1-3 or Fever >100.4 Hydrocodone Bitart/Acetaminophen 1 tab 04/28/24 06:33 Hydrocodone/Apap 5/325 Tablet PO 05/03/24 06:32 Q4HR PRN PAIN SCALE 4-6 (Moderate Atorvastatin Calcium 20 mg 04/28/24 21:00 Atorvastatin Calcium 20 Mg Tablet PO 05/28/24 20:59 HS GARRET Heparin Sodium (Porcine) 5,000 unit 04/28/24 06:45 04/28/24 08:10 Heparin Sod Inj 5000 Unit/Ml Vial SC 05/12/24 06:44 5,000 unit Q8HR GARRET Administration Hydromorphone HCl 1 mg 04/28/24 06:33 Hydromorphone Inj 2 Mg/Ml Vial IVP 05/03/24 06:32 Q4HR PRN PAIN Sodium Chloride 1,000 mls @ 70 mls/hr 04/28/24 06:45 04/28/24 08:09 Ns IV 05/28/24 06:44 70 mls/hr .[id number] GARRET Administration Losartan Potassium 25 mg 04/28/24 09:00 04/28/24 08:10 Losartan Potassium 25 Mg Tablet PO 05/28/24 08:59 25 mg QDAY G[facility]RET Administration Ondansetron HCl 4 mg 04/28/24 06:33 Ondansetron Inj 2 Mg/Ml Inj 2 Ml IV 05/28/24 06:32 Q6H PRN NAUSEA OR VOMITING Protocol Pantoprazole Sodium 40 mg 04/28/24 09:00 04/28/24 08:10 Pantoprazole 40 Mg Tablet PO 05/28/24 08:59 40 mg QDAY GARRET Administration Potassium Chloride 40 meq 04/28/24 13:00 Potassium Chloride 10% 20 Meq/15 Ml Udc PO 04/28/24 13:01 X1 ONE Plan Assessment: Patient is a 63-year-old female with a past medical history of hypertension & hyperlipidemia who was admitted on 04/28/2024 for gastroenteritis and intractable abdominal pain. #Intractable abdominal pain - improving #Nausea/Vomiting - improving #Mild Leukocytosis Etiology: given recent upper viral infection, gastroenterititis can not be ruled out. DDx: Inflammatory Bowel Disease, consider Crohns's vs acute mesenteric ischemia vs diverticulitis given location and history on previous Colonoscopy. Diagnostic: CBC (04/28/2024): WBC 11.2 CMP (04/28/2024): Na 138, K 3.0, BUN 21, Cr 0.7, Glucose 169 Abdomen/Pelvis (04/28/2024): Mild fluid subcapsular to the liver and adjacent to the spleen, No pancreatic mass, No gallstones, Mild free fluid in the abdomen, Multiple abnormal loops of small bowel, distended, wall thickening with edema adjacent to the bowel loops, Colonic diverticulosis Plan -GI following, Dr. Bautista, recommendations as follows: Clear liquid diet IV Zosyn IV Solu-Medrol Pain control as necessary ANCA antibody Stool for culture and sensitivity Replace potassium Once patient is improves might need colonoscopy with intubation of the terminal ileum to get biopsies of the terminal ileum to establish a diagnosis Recommend surgical consultation in case the patient deteriorates may need surgical intervention at that time #HTN -resume home medication, Atorvastatin 20 mg PO HS #HLD -resume home medicaiton, Losartan 25 mg PO Qday #Incidential finding, Pulmonary granuloma Plan: 5 mm calcified granuloma right middle lobe, outpatient followup Health Maintenance: Disp: Pt is currently admitted to floors for further management of abdominal pain FEN: NPO DVT: on subQ heparin Code: Full Code Patient's case was discussed with supervising attending physician Dr. Carol Maddox M.D. Internal Medicine PGY-3 Attending Provider Attestation/Addendum Sumemr Martinez DO, attest that I was physically present for the simms portions of the service and evaluated the patient with the resident and I reviewed and discussed the case with the resident and agree with the resident's findings and plans of care as documented above Patient seen and evaluated this AM. Patient states she is very tired due to vomiting overnight. Patient reports pain began overnight around the periumbilical region. Patient denies any past surgical history or similar episodes in the past. Patient was given GoLytely this morning and had a few sips, but has not had a BM or passed gas. Patient denies any fevers or chills. She denies any recent sick contacts or eating out. Patient's daughter states that patient eats a high fiber diet and has lost 40lbs in the past year due to lifestyle/diet change. Case discussed with GI, recommends solumedrol 40mg IV BID and IV zosyn, DC golytely as colonoscopy will be planned once edema is improved with steroids. Patient states BMs are regular, no signs of IBS. Per daughter, patient had a colonoscopy a few years ago and was unremarkable. Denies any hematochezia or hematemesis.
[2024-04-28] MEDS: PIPER/TAZO 3.375 GM 50 ML IV ×2 (11:46→21:45)
[2024-04-28 12:25] LABS: C-Reactive Protein < 0.4 mg/dL (0.0-0.9)
[2024-04-28 13:00] LABS: Amphetamine/Methamp Scrn,U Negative (Negative); Barbiturate Screen,Urine Negative (Negative); Benzodiazepines Screen,Urine Negative (Negative); Benzoylecgonine Screen, Ur Negative (Negative); Fentanyl Screen,Urine Negative (Negative); Opiate Screen,Urine Positive (Negative); THC Screen,Urine Negative (Negative)
--- NOTE | 2024-04-28 13:47 | ESCONSULT_ITS ---
HPI Data of Consult Requesting Physician: Saji Masterson MD Primary Care Provider: Malcom Buckner MD Consult Narrative Reason for consult: Pain abdomen abnormal CTAP, nausea vomiting History of present illness: 63 years old female brought into the emergency room by her daughter with acute onset of severe lower abdominal pain accompanied by nausea vomit She did have a small bowel movement prior to coming to the ER In the emergency room her WBC count was 11.2 hemoglobin hematocrit 13.9 and 42.3 Glucose 169 Potassium 3.0 And was 134 but normal lipase at 39 CT scan of the abdomen pelvis with contrast showed thickening of the small bowel loops suggestive of regional ileitis Crohn's ileitis other differential diagnosis included ischemic bowel disease The ER physician had called me I asked him to admit the patient start the patient on IV Zosyn or the other combination would be metronidazole and IV ciprofloxacin and also start the patient on IV Solu-Medrol I evaluate the patient this morning No blood in the stool No hematemesis melena or hematochezia Patient had a colonoscopy April of last year which showed mild diverticulosis cc:: cc: Saji Masterson MD Review of Systems Review of Systems Systems Reviewed: All systems reviewed, normal except as documented Past Medical History Surgical History OTHER SURGICAL HX: Essential hypertension Hyperlipidemia Meds Home Medications and Allergies Home Medications ?Medication ?Instructions ?Recorded ?Confirmed ?Type atorvastatin 20 mg tablet 20 mg PO HS 05/04/23 05/04/23 History losartan 25 mg tablet 25 mg PO QDAY 05/04/23 05/04/23 History Allergies Allergy/AdvReac Type Severity Reaction Status Date / Time No Known Allergies Allergy Verified 05/04/23 12:02 Exam Vital Signs Temp Pulse Resp BP Pulse Ox O2 Del Method O2 Flow Rate 98.1 F 89 20 133/76 H 97 Room Air 1 04/28/24 12:00 04/28/24 12:00 04/28/24 12:00 04/28/24 12:00 04/28/24 12:00 04/28/24 12:00 04/28/24 09:39 Constitutional Comments: Alert oriented Routine Respiratory Exam Comments: Normal to auscultation Routine Abdominal Exam Comments: Soft nontender Results Labs 04/28/24 01:58 04/28/24 01:58 Labs: Short CBC 04/28/24 Range/Units 01:58 WBC 11.2 H (3.6-11.0) Thou/mm3 Hgb 13.9 (12.0-16.0) g/dL Hct 42.3 (36.0-46.0) % Plt Count 271 (140-440) Thou/mm3 BMP 04/28/24 01:58 Sodium 138 Potassium 3.0 L Chloride 106 Carbon Dioxide 23.2 BUN 21 Creatinine 0.7 Glucose 169 H Calcium 9.9 Liver Function 04/28/24 Range/Units 01:58 Total Bilirubin 0.9 (0.3-1.2) mg/dL AST 23 (0-34) U/L ALT 18 (10-49) U/L Alkaline Phosphatase 115 (46-116) U/L Albumin 4.9 H (3.4-4.8) gm/dL Urine 04/28/24 Range/Units 04:47 Urine Color Lt-Yellow (Lt Yel-Yel) Urine Clarity Clear (Clear/Hazy) Urine pH 5.0 (5.0-7.0) Ur Specific [place] 1.035 (1.001-1.035) Urine Protein Negative (Neg - Trace) Urine Glucose (UA) Negative (Negative) Assessment and Plan Additional Assessment & Plan Additional Plan: # Acute onset of abdominal pain with abnormal CT scan of the abdomen pelvis suggestive of regional ileitis rather infectious or inflammatory unknown at the moment Plan Clear liquid diet IV Zosyn IV Solu-Medrol Pain control as necessary ANCA antibody Stool for culture and sensitivity Replace potassium Once patient is improves might need colonoscopy with intubation of the terminal ileum to get biopsies of the terminal ileum to establish a diagnosis Recommend surgical consultation in case the patient deteriorates may need surgical intervention at that time Other medical problems include # Essential hypertension # Hyperlipidemia Thank you once again for the opportunity to participate in the care of this patient
[2024-04-28 15:16] LABS: C-Reactive Protein 0.7 mg/dL (0.0-0.9)
[2024-04-28] MEDS: ATORVASTATIN CALCIUM 20 MG TABLET PO (21:45)
[2024-04-29] VITALS (18 sets, daily range): BP systolic 104–150; BP diastolic 66–83; PULSE 78–126; RESP 17–99; TEMP 36.1–36.8; O2SAT 95–100
[2024-04-29] MEDS: PIPER/TAZO 3.375 GM 50 ML IV ×3 (05:48→21:51)
[2024-04-29 05:49] LABS: Basophils % (Auto) 0 % (0-2.5); Eosinophils % (Auto) 0 % (0-10); Immature Granulocytes % (Auto) 0 % (0-0); Immature Granulocytes Auto 0.07 Thou/mm3 (0.00-0.00); Nucleated Red Blood Cell % 0 /100 WBC (0)
[2024-04-29] MEDS: HEPARIN SOD INJ 5000 UNIT/ML VIAL SC ×3 (05:49→21:51)
[2024-04-29 07:03] LABS: Hematocrit 47.4 % (36.0-46.0); Hemoglobin 15.5 g/dL (12.0-16.0); Lymphocytes # (Auto) 1.3 Thou/mm3 (1.0-4.8); Lymphocytes % (Auto) 7 % (10-50); Mean Corpuscular HGB Conc 32.7 g/dl (31.0-37.0); Mean Corpuscular Hemoglobin 26.4 pg (25.0-35.0); Mean Corpuscular Volume 81 fL (80-100); Monocytes # (Auto) 0.9 Thou/mm3 (0.0-0.8); Monocytes % (Auto) 5 % (0-12); Neutrophils % (Auto) 88 % (37-80); Platelet Count 259 Thou/mm3 (140-440); RDW Standard Deviation 40.1 fL (36.4-46.3); Red Blood Count 5.87 Miln/mm3 (4.00-5.20); White Blood Count 18.2 Thou/mm3 (3.6-11.0)
[2024-04-29 07:28] LABS: Anion Gap 7 (7-16); BUN/Creatinine Ratio 23 Ratio (12-20); Blood Urea Nitrogen 23 mg/dL (9-23); Calcium 9.4 mg/dL (8.3-10.6); Carbon Dioxide 20.2 mMol/L (20.0-31.0); Chloride 104 mMol/L (98-107); Estimated Creatinine Clearance 55.1 mL/min (>60); Glucose 244 mg/dL (74-106); Osmolality,Calculated 274 (275-295); Sodium 131 mMol/L (136-145); eGFR > 60 See Note
[2024-04-29 07:41] LABS: Potassium 6.7 mMol/L (3.4-5.1)
--- NOTE | 2024-04-29 07:54 | EKG_ITS ---
[facility] Test Date: 2024-04-29 Pat Name: ELY CLARK Department: Room: 82A Gender: Female Chemistry Lab Instructor: CHANDRA : 1960 Requested By: Conrado Phillip Order Number: [id number] Reading MD: Conrado Phillip Measurements Intervals [place] Rate: 109 P: 63 TN: 130 QRS: 56 QRSD: 73 T: 31 QT: 301 QTc: 406 Interpretive Statements SINUS TACHYCARDIA NONSPECIFIC ST & T-WAVE ABNORMALITY ABNORMAL RHYTHM ECG Compared to ECG 04/03/2022 09:39:56 T-wave abnormality now present Sinus rhythm no longer present /store/S0/[id number]
[2024-04-29] MEDS: DEXTROSE 50%-WATER INJ 50 ML SYRINGE IV ×2 (08:13→11:36)
[2024-04-29] MEDS: INSULIN HUM REGULAR 1 UNIT/0.01 ML (PER UNIT) 10 UNIT IV ×2 (08:13→11:36)
[2024-04-29] MEDS: PANTOPRAZOLE 40 MG TABLET PO (08:14)
[2024-04-29] MEDS: CALCIUM GLUC/NS 1000MG IVPB 1,000 MG/50 ML BAG 50 MG IV (08:32)
[2024-04-29] MEDS: ALBUTEROL RT 2.5 MG/0.5 ML NEBU 10 MG INH (11:04)
[2024-04-29 11:11] LABS: Albumin, Serum 3.9 gm/dL (3.4-4.8); Anion Gap 7 (7-16); BUN/Creatinine Ratio 23 Ratio (12-20); Blood Urea Nitrogen 21 mg/dL (9-23); Calcium 10.3 mg/dL (8.3-10.6); Calcium (Corrected) 10.4 mg/dL (8.5-10.1); Chloride 103 mMol/L (98-107); Creatinine (Component) 0.9 mg/dL (0.6-1.3); Estimated Creatinine Clearance 61.3 mL/min (>60); Glucose 208 mg/dL (74-106); Osmolality,Calculated 271 (275-295); Phosphorous 1.8 mg/dL (2.4-5.1); Sodium 131 mMol/L (136-145); eGFR > 60 See Note
[2024-04-29 11:13] LABS: Potassium 6.9 mMol/L (3.4-5.1)
[2024-04-29] MEDS: SOD POLYSTYRENE SULFON SUSP 15 GM/60 ML BTL 30 GM PO (11:35)
--- NOTE | 2024-04-29 12:41 | ESPR_ITS ---
<Statement entered by Ronnell Krishnan MD - 04/29/24 14:13> Senior Resident Attestation: I supervised/discussed management plan with property management intern physician Dr. Bhatia, and was involved in the care of this patient. I personally saw and examined the patient and discussed the assessment and plan with the entire medicine team, including my attending. I agree with the assessment and plan as documented. Patient was seen and examined at the bedside. No acute overnight events. Patient had significant hyperkalemia of 6.7 today and was given insulin albuterol, repeat showed potassium 6.9 she was given additional insulin and Kayexalate, also was given mineral oil enema, will repeat potassium. Will continue Zofran for nausea control. Will continue Zosyn, methylprednisolone, clear liquid diet as of now. Patient's care was discussed with attending physician, Dr. Medina. Ronnell Krishnan MD PGY-2. Documentation for date of: 04/29/24 Subjective Subjective Interval history: Patient was seen at bedside this morning. No overnight events. Patient was found to be hyperkalemic on morning labs and she was given insulin 10 units x 1 with dextrose and 1 g calcium as well as an EKG. EKG did not show any ST changes or peaked T waves. She did not have any chest pain or shortness of breath during this time. On repeat labs patient again was hyperkalemic therefore Kayexalate x 1 was given and she was already getting her albuterol treatment. Around noon time she still had not passed a bowel movement therefore enema was given as well. No other complaints at this time. Exam Vital Signs Temp Pulse Resp BP Pulse Ox O2 Del Method O2 Flow Rate 98.3 F 112 H 18 150/66 H 99 Room Air 1 04/29/24 12:00 04/29/24 12:00 04/29/24 12:00 04/29/24 12:00 04/29/24 12:00 04/29/24 12:00 04/28/24 09:39 Narrative Exam General: A/O x3, no acute distress, well-nourished, well-developed Eyes: PERRL, EOMI. Anicteric, vision grossly intact. Ears: No ear pain, no ear discharge, Hearing grossly intact. Nose: No nasal discharge. Mouth/Throat: Dry mucous membranes, no redness, no lesions. Neck: Neck supple, non-tender, no cervical lymphadenopathy. Lungs: Clear PRISCA to auscultation and percussion, No accessory muscle use. Cardio: Normal S1/S2, regular rhythm, no murmurs, no JVD. Abdomen: Soft, mild diffuse tenderness, no palpable masses, peristalsis present, no guarding or rebound. Extremities: Symmetrical, no significant deformities, no peripheral edema , non-tender, peripheral pulses presents. Skin: No rashes, no lesions, warm to touch. Neuro: No focal neurological deficits. motor and sensory intact Psych: Cooperative, appropriate mood and effect. Objective Labs 04/29/24 05:25 04/29/24 10:20 Labs: Laboratory Results - last 24 hr 04/28/24 04/28/24 04/29/24 04:47 14:34 05:25 WBC 18.2 H D RBC 5.87 H Hgb 15.5 Hct 47.4 H MCV 81 MCH 26.4 MCHC 32.7 RDW Std Deviation 40.1 Plt Count 259 Neut % (Auto) 88 H Lymph % (Auto) 7 L [place] % (Auto) 5 Eos % (Auto) 0 Baso % (Auto) 0 Neut # (Auto) 16.0 H Lymph # (Auto) 1.3 [place] # (Auto) 0.9 H Eos # (Auto) 0.0 Baso # (Auto) 0.0 Immature Gran # (Auto) 0.07 H Absolute Nucleated RBC 0.00 Immature Gran % 0 Nucleated RBC % 0 Sodium Potassium Chloride Carbon Dioxide Anion Gap BUN Creatinine Estim Creat Clear Calc eGFR BUN/Creatinine Ratio Glucose Calculated Osmolality Calcium Corrected Calcium Phosphorus C-Reactive Prot, Quant 0.7 Albumin Urine Opiates Screen Positive A Urine Fentanyl Screen Negative Ur Barbiturates Screen Negative U Amphetamin/Meth Scrn Negative U Benzodiazepines Scrn Negative U Cocaine Metab Screen Negative U Marijuana (THC) Screen Negative 04/29/24 04/29/24 06:42 10:20 WBC RBC Hgb Hct MCV MCH MCHC RDW Std Deviation Plt Count Neut % (Auto) Lymph % (Auto) [place] % (Auto) Eos % (Auto) Baso % (Auto) Neut # (Auto) Lymph # (Auto) [place] # (Auto) Eos # (Auto) Baso # (Auto) Immature Gran # (Auto) Absolute Nucleated RBC Immature Gran % Nucleated RBC % Sodium 131 L 131 L Potassium 6.7 H* D 6.9 H* Chloride 104 103 Carbon Dioxide 20.2 21.0 Anion Gap 7 7 BUN 23 21 Creatinine 1.0 0.9 Estim Creat Clear Calc 55.1 L 61.3 eGFR > 60 > 60 BUN/Creatinine Ratio 23 H 23 H Glucose 244 H D 208 H Calculated Osmolality 274 L 271 L Calcium 9.4 10.3 Corrected Calcium 10.4 H Phosphorus 1.8 L C-Reactive Prot, Quant Albumin 3.9 D Urine Opiates Screen Urine Fentanyl Screen Ur Barbiturates Screen U Amphetamin/Meth Scrn U Benzodiazepines Scrn U Cocaine Metab Screen U Marijuana (THC) Screen Quality Measures Quality Measures none Assessment & Plan Assessment Current Active Medications: Generic Name Dose Route Start Last Admin Trade Name Freq PRN Reason Stop Dose Admin Acetaminophen 650 mg 04/28/24 06:33 Acetaminophen 325 Mg Tablet PO 05/28/24 06:32 Q6H PRN Mild Pain 1-3 or Fever >100.4 Hydrocodone Bitart/Acetaminophen 1 tab 04/28/24 06:33 Hydrocodone/Apap 5/325 Tablet PO 05/03/24 06:32 Q4HR PRN PAIN SCALE 4-6 (Moderate Atorvastatin Calcium 20 mg 04/28/24 21:00 04/28/24 21:45 Atorvastatin Calcium 20 Mg Tablet PO 05/28/24 20:59 20 mg HS GARRET Administration Heparin Sodium (Porcine) 5,000 unit 04/28/24 06:45 04/29/24 05:49 Heparin Sod Inj 5000 Unit/Ml Vial SC 05/12/24 06:44 5,000 unit Q8HR GARRET Administration Hydromorphone HCl 1 mg 04/28/24 12:31 04/28/24 20:11 Hydromorphone Inj 2 Mg/Ml Vial IVP 05/03/24 06:32 1 mg Q4HR PRN Administration PAIN SCALE 7-10 (Severe Sodium Chloride 1,000 mls @ 70 mls/hr 04/28/24 06:45 04/28/24 21:45 Ns IV 05/28/24 06:44 70 mls/hr .[id number] GARRET Administration Piperacillin/Tazobactam/Dextrose 50 mls @ 12.5 mls/hr 04/28/24 11:30 04/29/24 05:48 Zosyn IV 05/05/24 11:29 12.5 mls/hr Q8HR GARRET Administration Losartan Potassium 25 mg 04/28/24 09:00 04/28/24 08:10 Losartan Potassium 25 Mg Tablet PO 05/28/24 08:59 25 mg QDAY GARRET Administration Methylprednisolone Sodium Succinate 40 mg 04/28/24 21:00 04/29/24 08:13 Methylprednisolone Sod Succ 40 Mg Vial IVP 05/05/24 20:59 40 mg Q12HR GARRET Administration Ondansetron HCl 4 mg 04/28/24 06:33 04/28/24 20:11 Ondansetron Inj 2 Mg/Ml Inj 2 Ml IV 05/28/24 06:32 4 mg Q6H PRN Administration NAUSEA OR VOMITING Protocol Pantoprazole Sodium 40 mg 04/28/24 09:00 04/29/24 08:14 Pantoprazole 40 Mg Tablet PO 05/28/24 08:59 40 mg QDAY GARRET Administration Sodium Chloride 3 ml 04/29/24 10:17 Sodium Chloride Rt Emily 0.9% 3 Ml Nebu INH 05/29/24 10:16 PRN PRN SOLN Plan 63-year-old female with past medical history of hypertension and hyperlipidemia was admitted to the hospital on 04/28/2024 for intractable abdominal pain and gastroenteritis. #Hyperkalemia ?Patient initially came in hypokalemic and received a total of 120 mEq of potassium ?Potassium this morning was 6.7 ?Repeat potassium 6.9 after 10 units of IV insulin, amp of D50, and 1 g of calcium ?EKG did not show any peaked T waves Plan: ?Kayexalate 30 g x 1 ?Mineral oil edema x1 ?Albuterol x 1 ?Additional 10 units IV insulin plus amp of D50 ?Repeat labs, will follow-up on results ?Will continue to monitor #Intractable abdominal pain #Gastroenteritis #Constipation #IBD? # Leukocytosis ?Patient came in with chief complaint of diffuse abdominal pain rating a 10 out of 10, but no diarrhea or hematochezia. ?Patient states he has been constipated since the day prior to admission ?DDx IBD such as Crohn's versus mesenteric ischemia ?Abdomen/pelvis CT on 04/28/2024 show markedly abnormal small bowel loops and mildly distended, prominent wall thickening with edema adjacent to multiple small bowel loops. ?WBC 18.2 today, likely reactive given patient is on steroids Plan: ?Mineral oil enema x 1 ?Continue IV Solu-Medrol [04/28/2024?] ?Continue Zosyn [04/28/2024?] ?Stool cultures and an Antibody still pending ?Patient will most likely undergo colonoscopy later during her hospital course ?GI consulted, appreciate recommendations ?Will continue to monitor #Hx of HTN ?Held losartan 25 mg daily as patient was hyperkalemic #Hx of HLD ?Continue atorvastatin 20 mg p.o. at bedtime #Incidental finding, pulmonary granuloma ?5 mm granuloma of right middle lobe ?Follow-up outpatient Disposition: Patient seen in med surg, no BM yet, gave mineral oil enema and kayexalate 30g x1, treating for hyperkalemia Diet: Clear liquid GI prophylaxis: protonix DVT prophylaxis: heparin sc Code: Full Case disclosed with Attending Dr. Medina and My senior Dr. Krishnan PGY2. Conrado Phillip PGY1 Attending Provider Attestation/Addendum I, Summer Medina, DO, attest that I was physically present for the simms portions of the service and evaluated the patient with the resident and I reviewed and discussed the case with the resident and agree with the resident's findings and plans of care as documented above Patient seen and evaluated this a.m. Daughters are at bedside. Patient is much more alert today and states that the pain has improved. However, patient has not had a bowel movement or been able to pass gas. She reports some pain on palpation of her mid abdomen. She has been having a lot of burping, but denies any nausea or vomiting. Patient remains on steroids and IV Zosyn. Potassium was 6.7 up trended to 6.9 despite receiving insulin. She was receiving albuterol, reevaluation. Will give another 10 units of insulin due to hyperkalemia. Patient was able to tolerate clear liquid diet. Okay to start bowel regimen per GI to lower potassium level. However, patient had nausea after receiving lactulose and began vomiting. Repeat KUB shows dilatation of colon concerning for SBO. Will place NG tube, n.p.o. and place NG tube to suction. Surgery was consulted and recommends Gastrografin small bowel follow- through.
[2024-04-29] MEDS: ONDANSETRON INJ 2 MG/ML INJ 2 ML 4 MG IV ×2 (14:02→19:36)
--- NOTE | 2024-04-29 14:06 | XR_ITS ---
Examination: Abdomen AP single view Technique: AP portable supine abdomen, single view Exam date and time: April 29, 2024 1418 hrs. Indications: Onset abdominal pain today. Findings: Large amounts of stool throughout the colon There are air distended small bowel loops in the midabdomen No free air Moderate osteopenia Impression: Significantly air distended small bowel loops, please see the CT abdomen pelvis report April 28, 2024 indicating markedly abnormal small bowel loops, distended with wall thickening
--- NOTE | 2024-04-29 15:11 | XR_ITS ---
' KV examination: AP chest single view Technique one AP portable semiupright chest single view Exam date and time: May 29, 2024 1527 hrs. Indications: Post orogastric tube placement Findings: Orogastric tube tip in the stomach satisfactory position Opacity right base consistent with pneumonia Normal heart size Moderate osteopenia Impression: Orogastric tube tip in the stomach satisfactory position
[2024-04-29 15:16] LABS: Potassium 5.4 mMol/L (3.4-5.1)
[2024-04-29] MEDS: SODIUM CHLORIDE 0.9% 1000 ML 1,000 ML 70 ML IV (15:28)
[2024-04-29] MEDS: ALBUTEROL RT 2.5 MG/0.5 ML NEBU 20 MG INH (15:47)
--- NOTE | 2024-04-29 17:03 | PD.SURCONS ---
HPI Consult details Consult date: 04/29/24 Reason for consultation narrative: Patient was seen in consultation for a possible small bowel obstruction associated with abdominal pain History of present illness: Patient speaks only [place] and the history was obtained by daughters who are at the bedside. Patient was in his usual health until around 1:00 in the morning on Tuesday morning when she started he started experiencing pain over the lower abdomen. She had vomited once and she was brought to the emergency room. Patient had a normal bowel movement around 11:00 Tuesday night. Since then she has not passed gas or had any bowel movement. Patient was in severe pain which she described as 10 out of 10 and was given narcotics. Patient also was given some Solu-Medrol because x-ray reading suggesting enteritis. But the patient denies any history of chronic inflammatory disease or diarrhea or Crohn's disease or ulcerative colitis. This is the first episode of abdominal pain for this patient. She underwent colonoscopy for screening 1 year ago and it was normal. Her other medical problem consisted of possible hypertension and cholesterol. Past surgery none Past Medical History Past Medical History NEUROLOGIC: Negative Neurological Disorders or Seizures CARDIAC: Positive Hypercholesterolemia and Hypertension; Negative Cardiac Disorders or Congestive Heart Failure RESPIRATORY: Negative Chronic Obstructive Pulmonary Disease (COPD) or Asthma GASTROINTESTINAL: Negative Gastrointestinal Disorders GENITOURINARY: Negative Genitourinary Disorders or Renal Disease MUSCULOSKELETAL: Positive Musculoskeletal Disorders and Arthritis ENDOCRINE: Positive Endocrine Disorders and Diabetes Mellitus Type 2 (Pt reports Per-diabetic); Negative Diabetes Mellitus Type 1 HEMATOLOGIC: Negative Blood Disorders or Sickle Cell Disease OTHER HISTORY: Positive Chicken Pox, Measles and Mumps; Negative Autoimmune Disease, Blood Transfusions, Anesthesia Reactions or Cancer Surgical History OTHER SURGICAL HX: Essential hypertension Hyperlipidemia Social History SMOKING STATUS: Never smoker Meds Home Medications and Allergies Home Medications ?Medication ?Instructions ?Recorded ?Confirmed ?Type atorvastatin 20 mg tablet 20 mg PO HS 05/04/23 05/04/23 History losartan 25 mg tablet 25 mg PO QDAY 05/04/23 05/04/23 History Allergies Allergy/AdvReac Type Severity Reaction Status Date / Time No Known Allergies Allergy Verified 05/04/23 12:02 Exam Vital Signs Temp Pulse Resp BP Pulse Ox O2 Del Method O2 Flow Rate 98.3 F 115 H 20 150/66 H 100 Room Air 1 04/29/24 12:00 04/29/24 15:50 04/29/24 15:50 04/29/24 12:00 04/29/24 15:50 04/29/24 12:00 04/28/24 09:39 Narrative Exam Physical examination revealed a thin built female who is 5 feet 4 inches tall weighing 145 pounds with BMI of 25 Constitutional Constitutional: mild distress Routine Cardiovascular Exam Comments: Patient has sinus tachycardia with a heart rate around 120 Routine Abdominal Exam Comments: Abdomen is not distended but there is some localized tenderness over the left side as well as in the suprapubic region. There is no rigidity or rebound tenderness to suggest any peritonitis. Bowel sounds are quite active. Rectal deferred because of the recent colonoscopy performed by me last year. Routine Rectal Exam Comments: Deferred Routine Exam Comments: Deferred Results Results: Laboratory Laboratory Narrative: Patient's laboratory workup showed a WBC was around 11,000 which now went up to 18,000 today probably due to steroid patient for some reason had hyperkalemia yesterday which was corrected and it is now 5.4. Patient also has elevated glucose in 200s. BUN/creatinine are normal Results: Imaging Imaging narrative: CT scan of the abdomen showed thickening of the small bowel loops in the pelvis with edema suggesting enteritis or ischemia. Assessment & Plan Additional Assessment Additional comments: Impression: Abdominal pain of unknown etiology Rule out small bowel disease Hypertension Hyperglycemia Hyperkalemia Plan Plan: Patient does not seem to be having classical pictures of small bowel disease. I do not see significantly dilated small bowel loops on the plain film even though they are slightly prominent on the CT scan. We shall however get a Gastrografin study to rule out any abnormality and any obstruction. There are no indications to surgically intervene at this time because the diagnosis is not established yet. I will follow the patient with you.
--- NOTE | 2024-04-29 17:29 | PD.SURPROG ---
Documentation for date of: 04/29/24 Subjective Subjective Brief History: Patient speaks only Bulgarian and the history was obtained by daughters who are at the bedside. Patient was in his usual health until around 1:00 in the morning on Tuesday morning when she started he started experiencing pain over the lower abdomen. She had vomited once and she was brought to the emergency room. Patient had a normal bowel movement around 11:00 Tuesday night. Since then she has not passed gas or had any bowel movement. Patient was in severe pain which she described as 10 out of 10 and was given narcotics. Patient also was given some Solu-Medrol because x-ray reading suggesting enteritis. But the patient denies any history of chronic inflammatory disease or diarrhea or Crohn's disease or ulcerative colitis. This is the first episode of abdominal pain for this patient. She underwent colonoscopy for screening 1 year ago and it was normal. Her other medical problem consisted of possible hypertension and cholesterol. Past surgery none Narrative: The patient is eating better and tolerating it well. He is in good spirits Exam Vital Signs Temp Pulse Resp BP Pulse Ox O2 Del Method O2 Flow Rate 98.3 F 115 H 20 150/66 H 100 Room Air 1 04/29/24 12:00 04/29/24 15:50 04/29/24 15:50 04/29/24 12:00 04/29/24 15:50 04/29/24 12:00 04/28/24 09:39 Vital signs are stable except tachycardia Routine Abdominal Exam Comments: Catheter in the abdomen is draining very little. Upon irrigation I did not get any cloudy fluid Results Results: Laboratory Laboratory Narrative: His BUN/creatinine is coming down Assessment & Plan Assessment Additional comments: Impression: His intra-abdominal infection most probably has resolved Plan Plan we shall get a CT scan tomorrow morning and then see if the radiologist can remove the catheter. Procedures Procedures Patient received 2 units of packed cells
--- NOTE | 2024-04-29 18:31 | ESPR_ITS ---
Documentation for date of: 04/29/24 Subjective Subjective Interval history: Patient evaluated Does have abdominal pain Has not had a bowel movement Does have an NGT Hyperkalemia is being corrected Will start GoLytely via the tube and schedule colonoscopy with intubation of the terminal ileum for biopsies Exam Vital Signs Temp Pulse Resp BP Pulse Ox O2 Del Method O2 Flow Rate 98.1 F 118 H 18 124/80 100 Oxy Mask 6 04/29/24 16:00 04/29/24 17:42 04/29/24 16:00 04/29/24 16:00 04/29/24 16:00 04/29/24 16:00 04/29/24 16:00 Objective Labs 04/29/24 05:25 04/29/24 14:33 Labs: Laboratory Results - last 24 hr 04/29/24 04/29/24 04/29/24 05:25 06:42 10:20 WBC 18.2 H D RBC 5.87 H Hgb 15.5 Hct 47.4 H MCV 81 MCH 26.4 MCHC 32.7 RDW Std Deviation 40.1 Plt Count 259 Neut % (Auto) 88 H Lymph % (Auto) 7 L [place] % (Auto) 5 Eos % (Auto) 0 Baso % (Auto) 0 Neut # (Auto) 16.0 H Lymph # (Auto) 1.3 [place] # (Auto) 0.9 H Eos # (Auto) 0.0 Baso # (Auto) 0.0 Immature Gran # (Auto) 0.07 H Absolute Nucleated RBC 0.00 Immature Gran % 0 Nucleated RBC % 0 Sodium 131 L 131 L Potassium 6.7 H* D 6.9 H* Chloride 104 103 Carbon Dioxide 20.2 21.0 Anion Gap 7 7 BUN 23 21 Creatinine 1.0 0.9 Estim Creat Clear Calc 55.1 L 61.3 eGFR > 60 > 60 BUN/Creatinine Ratio 23 H 23 H Glucose 244 H D 208 H Calculated Osmolality 274 L 271 L Calcium 9.4 10.3 Corrected Calcium 10.4 H Phosphorus 1.8 L Albumin 3.9 D 04/29/24 14:33 WBC RBC Hgb Hct MCV MCH MCHC RDW Std Deviation Plt Count Neut % (Auto) Lymph % (Auto) [place] % (Auto) Eos % (Auto) Baso % (Auto) Neut # (Auto) Lymph # (Auto) [place] # (Auto) Eos # (Auto) Baso # (Auto) Immature Gran # (Auto) Absolute Nucleated RBC Immature Gran % Nucleated RBC % Sodium Potassium 5.4 H D Chloride Carbon Dioxide Anion Gap BUN Creatinine Estim Creat Clear Calc eGFR BUN/Creatinine Ratio Glucose Calculated Osmolality Calcium Corrected Calcium Phosphorus Albumin Impressions Impression: # Pain abdomen # Regional ileitis # Leukocytosis Continue current management GoLytely via NGT at 300 cc an hour Colonoscopy a.m. Assessment & Plan A&P Narrative # Acute onset of abdominal pain with abnormal CT scan of the abdomen pelvis suggestive of regional ileitis rather infectious or inflammatory unknown at the moment Plan Clear liquid diet IV Zosyn IV Solu-Medrol Pain control as necessary ANCA antibody Stool for culture and sensitivity Replace potassium Once patient is improves might need colonoscopy with intubation of the terminal ileum to get biopsies of the terminal ileum to establish a diagnosis Recommend surgical consultation in case the patient deteriorates may need surgical intervention at that time Other medical problems include # Essential hypertension # Hyperlipidemia Thank you once again for the opportunity to participate in the care of this patient Time Spent With Patient Time: Total time spent is greater than 50% in coordination of care (as documented) at patient's floor/unit and/or counseling patient:
--- NOTE | 2024-04-29 19:30 | PC.NURSE ---
Pt's HR 146-152 sustained. upon checking up on pt, found that pt is throwing up. Dr. Juares was made aware. Pt denies any chest pain, discomfort. MD will assess pt later.
[2024-04-29 19:31] LABS: Hematocrit 39.2 % (36.0-46.0); Hemoglobin 12.9 g/dL (12.0-16.0)
[2024-04-29] MEDS: NA SU/NAHCO3/KC/PEG (Golytely) 4,000 ML BTL 4000 ML NG (19:51)
--- NOTE | 2024-04-29 21:12 | EKG_ITS ---
[facility] Test Date: 2024-04-29 Pat Name: ELY CLARK [facility] Group Exercise Class Instructor: MALCOLM : 1960 Requested By: Brandon Horowitz Order Number: [id number] Reading MD: Brandon Horowitz Measurements Intervals [place] Rate: 112 P: 70 ND: 127 QRS: 66 QRSD: 78 T: 71 QT: 303 QTc: 414 Interpretive Statements SINUS TACHYCARDIA NONSPECIFIC T-WAVE ABNORMALITY ABNORMAL RHYTHM ECG Compared to ECG 04/29/2024 09:19:50 No significant changes /store/S0/[id number]
--- NOTE | 2024-04-29 22:55 | PC.NURSE ---
okay to hold golytely for now per Dr. Horowitz. Pt has nausea/vomiting.
[2024-04-29] MEDS: BENZOCAINE 20% (Hurricaine) SPRAY 1 DOSE TOP (23:20)
[2024-04-29] MEDS: METOCLOPRAMIDE INJ 5 MG/ML VIAL 2 ML 10 MG IVP (23:21)
[2024-04-29] MEDS: SODIUM CHLORIDE 0.9% 1000 ML 1,000 ML 125 ML IV (23:27)
[2024-04-30] VITALS (20 sets, daily range): BP systolic 113–149; BP diastolic 60–80; PULSE 78–117; RESP 13–98; TEMP 36.3–37.1; O2SAT 95–100; BMI 24.7
--- NOTE | 2024-04-30 | XR_ITS ---
Examination: Abdomen AP single view Technique: AP portable supine abdomen, single view Exam date and time: April 30, 2024 1202 hours INDICATIONS: Abdominal pain and distention this week, 2 hr 30 minute film post small bowel series today FINDINGS: Abnormal contrast distended small bowel loops IMPRESSION: Small bowel obstruction pattern
[2024-04-30] MEDS: PIPER/TAZO 3.375 GM 50 ML IV ×3 (05:12→21:39)
[2024-04-30] MEDS: HEPARIN SOD INJ 5000 UNIT/ML VIAL SC ×2 (05:12→21:45)
[2024-04-30 05:32] LABS: Basophils % (Auto) 0 % (0-2.5); Eosinophils % (Auto) 0 % (0-10); Hematocrit 34.7 % (36.0-46.0); Hemoglobin 11.5 g/dL (12.0-16.0); Immature Granulocytes % (Auto) 1 % (0-0); Immature Granulocytes Auto 0.15 Thou/mm3 (0.00-0.00); Lymphocytes # (Auto) 0.8 Thou/mm3 (1.0-4.8); Lymphocytes % (Auto) 3 % (10-50); Mean Corpuscular HGB Conc 33.1 g/dl (31.0-37.0); Mean Corpuscular Hemoglobin 26.3 pg (25.0-35.0); Mean Corpuscular Volume 79 fL (80-100); Monocytes # (Auto) 1.9 Thou/mm3 (0.0-0.8); Monocytes % (Auto) 8 % (0-12); Neutrophils # (Auto) 22.2 Thou/mm3 (1.8-7.7); Neutrophils % (Auto) 88 % (37-80); Nucleated Red Blood Cell % 0 /100 WBC (0); Platelet Count 204 Thou/mm3 (140-440); RDW Standard Deviation 40.5 fL (36.4-46.3); Red Blood Count 4.37 Miln/mm3 (4.00-5.20); White Blood Count 25.1 Thou/mm3 (3.6-11.0)
[2024-04-30 06:20] LABS: Anion Gap 8 (7-16); BUN/Creatinine Ratio 32 Ratio (12-20); Blood Urea Nitrogen 19 mg/dL (9-23); Carbon Dioxide 21.1 mMol/L (20.0-31.0); Chloride 107 mMol/L (98-107); Creatinine (Component) 0.6 mg/dL (0.6-1.3); Estimated Creatinine Clearance 91.9 mL/min (>60); Glucose 136 mg/dL (74-106); Osmolality,Calculated 276 (275-295); Phosphorous 2.6 mg/dL (2.4-5.1); Potassium 4.6 mMol/L (3.4-5.1); Sodium 136 mMol/L (136-145); eGFR > 60 See Note
--- NOTE | 2024-04-30 06:45 | PC.NURSE ---
Dr. Bautista was made aware that pt did not take the golytely due to nausea/vomiting. Golytely on hold per Dr. Horowitz.
--- NOTE | 2024-04-30 09:14 | XR_ITS ---
Examination: Small bowel series with KUB 3-D abdomen films Exam date and time: April 30, 2024 0921 hours INDICATIONS: Abdominal pain and distention this week, abnormal small bowel on CT abdomen pelvis April 28, 2024 markedly thickened small bowel loops with mesenteric edema TECHNIQUE AND FINDINGS: Building Performance Specialist AP supine abdomen single view Patient received 120 cc Gastrografin through the orogastric tube Preliminary film shows air distended small bowel loops Abdomen films at 30 minutes, 1 hour demonstrate contrast distended small bowel loops IMPRESSION: Small bowel obstruction pattern
[2024-04-30] MEDS: SODIUM CHLORIDE 0.9% 1000 ML 1,000 ML 125 ML IV (09:20)
--- NOTE | 2024-04-30 09:51 | PD.SURPROG ---
Documentation for date of: 04/30/24 Subjective Subjective Brief History: Patient speaks only Pashto and the history was obtained by daughters who are at the bedside. Patient was in his usual health until around 1:00 in the morning on Tuesday morning when she started he started experiencing pain over the lower abdomen. She had vomited once and she was brought to the emergency room. Patient had a normal bowel movement around 11:00 Tuesday night. Since then she has not passed gas or had any bowel movement. Patient was in severe pain which she described as 10 out of 10 and was given narcotics. Patient also was given some Solu-Medrol because x-ray reading suggesting enteritis. But the patient denies any history of chronic inflammatory disease or diarrhea or Crohn's disease or ulcerative colitis. This is the first episode of abdominal pain for this patient. She underwent colonoscopy for screening 1 year ago and it was normal. Her other medical problem consisted of possible hypertension and cholesterol. Past surgery none Narrative: The patient is feeling better today and is anxious to eat Exam Vital Signs Temp Pulse Resp BP Pulse Ox O2 Del Method O2 Flow Rate 98.4 F 104 H 16 141/70 H 95 Room Air 6 04/30/24 08:00 04/30/24 08:00 04/30/24 08:00 04/30/24 08:00 04/30/24 08:00 04/30/24 08:00 04/30/24 04:00 His vital signs are normal except mild tachycardia Results Results: Laboratory Laboratory Narrative: Laboratory workup shows improving renal functions but his WBC is around 12.5 which is normal for him Results: Imaging Imaging narrative: Patient had a CT scan this morning which showed a small subphrenic collection which is increased in size. Assessment & Plan Assessment Additional comments: Impression: Persistent subphrenic Plan Plan: We will arrange for another percutaneous drainage as directed by Dr. Lynn. Procedures Procedures Patient received 2 units of packed cells
--- NOTE | 2024-04-30 10:01 | PD.SURPROG ---
Documentation for date of: 04/30/24 Subjective Subjective Brief History: Patient speaks only Vietnamese and the history was obtained by daughters who are at the bedside. Patient was in his usual health until around 1:00 in the morning on Tuesday morning when she started he started experiencing pain over the lower abdomen. She had vomited once and she was brought to the emergency room. Patient had a normal bowel movement around 11:00 Tuesday night. Since then she has not passed gas or had any bowel movement. Patient was in severe pain which she described as 10 out of 10 and was given narcotics. Patient also was given some Solu-Medrol because x-ray reading suggesting enteritis. But the patient denies any history of chronic inflammatory disease or diarrhea or Crohn's disease or ulcerative colitis. This is the first episode of abdominal pain for this patient. She underwent colonoscopy for screening 1 year ago and it was normal. Her other medical problem consisted of possible hypertension and cholesterol. Past surgery none Narrative: the patient is still having pain but she has not requested any narcotics Exam Vital Signs Temp Pulse Resp BP Pulse Ox O2 Del Method O2 Flow Rate 98.4 F 104 H 16 141/70 H 95 Room Air 6 04/30/24 08:00 04/30/24 08:00 04/30/24 08:00 04/30/24 08:00 04/30/24 08:00 04/30/24 08:00 04/30/24 04:00 Vital signs revealed her heart rate to be 104 in spite of volume correction. She is passing urine adequately Routine Abdominal Exam Comments: Abdominal examination showed definite localized tenderness in the suprapubic region as well as in the left lower quadrant. This is changed from yesterday where she did not have signs of localized peritoneal irritation. Her bowel sounds however are normal Results Results: Laboratory Laboratory Narrative: Patient CBC shows WBC raised to 25,000. The small bowel series which was ordered yesterday was not performed because of the lack of help in the x-ray department Results: Imaging Imaging narrative: I reviewed the CT scan with Dr. Lynn who strongly feels that the patient has some mesenteric involvement and thickening of the bowel wall Assessment & Plan Assessment Additional comments: Impression: Possible ischemic bowel disease or inflammatory bowel disease involving the mesentery of the small bowel Increasing leukocytosis Plan Plan: We shall go ahead and explore her today because small bowel series only will delay the expiration. Patient is agreeable. I mentioned about the procedure which involves resection of the small bowel and anastomosis and the potential complications. Procedures Procedures Patient received 2 units of packed cells
[2024-04-30] MEDS: ONDANSETRON INJ 2 MG/ML INJ 2 ML 4 MG IV (10:44)
--- NOTE | 2024-04-30 10:49 | PC.SS ---
Patient Latia Gregory is a 63 Year old female admitted for Intractable abdominal Pain. SS met with patient's daughter, Ainsley Conde at bedside to discuss discharge plan. She reports she is patient's medical decision maker [phone]. Prior to admission patient was able to ambulate independently and did not utilize any source of DME. Patients choice of pharmacy is [facility] Patients PCP is Malcom Buckner. At time of discharge patient will return home. Discharge plan: Home Next of kin Daughter, Ainsley Conde
--- NOTE | 2024-04-30 13:12 | ESPR_ITS ---
<Statement entered by Ronnell Krishnan MD - 04/30/24 14:24> Senior Resident Attestation: I supervised/discussed management plan with internet site designer physician Dr. Bhatia, and was involved in the care of this patient. I personally saw and examined the patient and discussed the assessment and plan with the entire medicine team, including my attending. I agree with the assessment and plan as documented. Patient was seen and examined at bedside. No acute overnight events. Yesterday she was started on GoLytely however her pain got worse and GoLytely was held. General surgery was consulted and will likely perform exploratory laparotomy. Patient was placed in n.p.o., will continue NG tube. Patient's care was discussed with attending physician, Dr. Medina. Ronnell Krishnan MD PGY-2. Documentation for date of: 04/30/24 Subjective Subjective Interval history: Patient was seen at bedside this morning. Overnight patient was having a lot of pain and discomfort from her NG tube. She also had some episodes of vomiting this morning. General surgeon stated that he will perform an ex lap as the small bowel series will delay patient care and patient agreed to this. Patient is n.p.o. in the morning for possible procedure today. No other complaints at this time. Holding GoLytely as patient still hasn't have a bowel movement and NG tube is still in place. Exam Vital Signs Temp Pulse Resp BP Pulse Ox O2 Del Method O2 Flow Rate 98.5 F 95 16 131/76 H 100 Room Air 6 04/30/24 12:00 04/30/24 12:00 04/30/24 12:00 04/30/24 12:00 04/30/24 12:00 04/30/24 12:00 04/30/24 04:00 Narrative Exam General: A/O x3, no acute distress, well-nourished, well-developed Eyes: PERRL, EOMI. Anicteric, vision grossly intact. Ears: No ear pain, no ear discharge, Hearing grossly intact. Nose: No nasal discharge. Mouth/Throat: Dry mucous membranes, no redness, no lesions. Neck: Neck supple, non-tender, no cervical lymphadenopathy. Lungs: Clear PRISCA to auscultation and percussion, No accessory muscle use. Cardio: Normal S1/S2, regular rhythm, no murmurs, no JVD. Abdomen: Soft, mild diffuse tenderness, no palpable masses, peristalsis present, no guarding or rebound. Extremities: Symmetrical, no significant deformities, no peripheral edema , non-tender, peripheral pulses presents. Skin: No rashes, no lesions, warm to touch. Neuro: No focal neurological deficits. motor and sensory intact Psych: Cooperative, appropriate mood and effect. Objective Labs 04/30/24 04:56 04/30/24 04:56 Labs: Laboratory Results - last 24 hr 04/29/24 04/29/24 04/30/24 14:33 19:14 04:56 WBC 25.1 H D RBC 4.37 Hgb 12.9 D 11.5 L Hct 39.2 34.7 L MCV 79 L MCH 26.3 MCHC 33.1 RDW Std Deviation 40.5 Plt Count 204 D Neut % (Auto) 88 H Lymph % (Auto) 3 L [place] % (Auto) 8 Eos % (Auto) 0 Baso % (Auto) 0 Neut # (Auto) 22.2 H Lymph # (Auto) 0.8 L [place] # (Auto) 1.9 H Eos # (Auto) 0.0 Baso # (Auto) 0.0 Immature Gran # (Auto) 0.15 H Absolute Nucleated RBC 0.00 Immature Gran % 1 H Nucleated RBC % 0 Sodium 136 Potassium 5.4 H D 4.6 D Chloride 107 Carbon Dioxide 21.1 Anion Gap 8 BUN 19 Creatinine 0.6 Estim Creat Clear Calc 91.9 eGFR > 60 BUN/Creatinine Ratio 32 H Glucose 136 H D Calculated Osmolality 276 Calcium 9.0 Phosphorus 2.6 Magnesium 2.0 Quality Measures Quality Measures none Assessment & Plan Assessment Current Active Medications: Generic Name Dose Route Start Last Admin Trade Name Freq PRN Reason Stop Dose Admin Acetaminophen 650 mg 04/28/24 06:33 Acetaminophen 325 Mg Tablet PO 05/28/24 06:32 Q6H PRN Mild Pain 1-3 or Fever >100.4 Hydrocodone Bitart/Acetaminophen 1 tab 04/28/24 06:33 Hydrocodone/Apap 5/325 Tablet PO 05/03/24 06:32 Q4HR PRN PAIN SCALE 4-6 (Moderate Atorvastatin Calcium 20 mg 04/28/24 21:00 04/29/24 20:13 Atorvastatin Calcium 20 Mg Tablet PO 05/28/24 20:59 Not Given HS GARRET Heparin Sodium (Porcine) 5,000 unit 04/28/24 06:45 04/30/24 13:02 Heparin Sod Inj 5000 Unit/Ml Vial SC 05/12/24 06:44 Not Given Q8HR GARRET Hydromorphone HCl 1 mg 04/28/24 12:31 04/28/24 20:11 Hydromorphone Inj 2 Mg/Ml Vial IVP 05/03/24 06:32 1 mg Q4HR PRN Administration PAIN SCALE 7-10 (Severe Piperacillin/Tazobactam/Dextrose 50 mls @ 12.5 mls/hr 04/28/24 11:30 04/30/24 13:05 Zosyn IV 05/05/24 11:29 12.5 mls/hr Q8HR GARRET Administration Sodium Chloride 1,000 mls @ 125 mls/hr 04/29/24 17:05 04/30/24 09:20 Ns IV 04/30/24 17:04 125 mls/hr .Q8H GARRET Administration Losartan Potassium 25 mg 04/28/24 09:00 04/28/24 08:10 Losartan Potassium 25 Mg Tablet PO 05/28/24 08:59 25 mg QDAY GARRET Administration Ondansetron HCl 4 mg 04/28/24 06:33 04/30/24 10:44 Ondansetron Inj 2 Mg/Ml Inj 2 Ml IV 05/28/24 06:32 4 mg Q6H PRN Administration NAUSEA OR VOMITING Protocol Pantoprazole Sodium 40 mg 04/28/24 09:00 04/30/24 08:28 Pantoprazole 40 Mg Tablet PO 05/28/24 08:59 Not Given QDAY GARRET Sodium Chloride 3 ml 04/29/24 15:40 Sodium Chloride Rt Emily 0.9% 3 Ml Nebu INH 05/29/24 15:39 PRN PRN SOLN Plan 63-year-old female with past medical history of hypertension and hyperlipidemia was admitted to the hospital on 04/28/2024 for intractable abdominal pain and gastroenteritis. #Intractable abdominal pain #Gastroenteritis #Constipation #IBD? #SBO # Leukocytosis ?Patient came in with chief complaint of diffuse abdominal pain rating a 10 out of 10, but no diarrhea or hematochezia. ?Patient states he has been constipated since the day prior to admission ?Given concern for SBO as patient had distended small bowel loops as well as nausea and NG tube was placed and general surgery was consulted. ?DDx IBD such as Crohn's versus mesenteric ischemia versus SBO ?Abdomen/pelvis CT on 04/28/2024 show markedly abnormal small bowel loops and mildly distended, prominent wall thickening with edema adjacent to multiple small bowel loops. -Abd Xray showed distended small bowel loops ?WBC 25.1 today, likely reactive given patient is on steroids Plan: -NPO ?DC'd IV Solu-Medrol [04/28/2024?04/29/2024] ?Continue Zosyn [04/28/2024?] -Pending small bowel series results. -Undergoing ex-lap by general surgeon ?Stool cultures and an Antibody still pending ?Patient will most likely undergo colonoscopy later during her hospital course -General surgeon consulted, appreciate recommendations ?GI consulted, appreciate recommendations ?Will continue to monitor #Hyperkalemia, resolved ?Patient initially came in hypokalemic and received a total of 120 mEq of potassium ?Potassium yesterday was 6.7 ?Repeat potassium 6.9 after 10 units of IV insulin, amp of D50, and 1 g of calcium ?EKG did not show any peaked T waves -Potassium today is 4.6 Plan: ?Will continue to monitor #Microcytic chronic anemia ?on admission patient's hemoglobin was 13.9 ?Hemoglobin today was 11.5 Plan: ?will transfuse hemoglobin less than 7 ?Will continue to monitor #Hx of HTN ?Held losartan 25 mg daily as patient was hyperkalemic #Hx of HLD ?Continue atorvastatin 20 mg p.o. at bedtime #Incidental finding, pulmonary granuloma ?5 mm granuloma of right middle lobe ?Follow-up outpatient Disposition: Patient seen in med surg, no BM yet, going for ex-lap. Diet: NPO GI prophylaxis: protonix DVT prophylaxis: heparin sc Code: Full Case disclosed with Attending Dr. Medina and My senior Dr. Krishnan PGY2. Conrado Phillip PGY1 Attending Provider Attestation/Addendum Summer Martinez, , attest that I was physically present for the simms portions of the service and evaluated the patient with the resident and I reviewed and discussed the case with the resident and agree with the resident's findings and plans of care as documented above Patient seen and eval this a.m. She was started on GoLytely overnight through NG tube with worsening abdominal pain, nausea and vomiting. Will DC GoLytely at this time. Patient still has not passed any gas or had a bowel movement, concerning for possible obstruction. Case was discussed with surgeon who does not feel that the patient has an obstruction, but will do an ex lap this afternoon. Patient is agreeable to exploratory laparotomy. She is noted to have leukocytosis, likely due to the steroids that were given for the previous [address] patient n.p.o. at this time. Will follow-up with IntraOp findings.
--- NOTE | 2024-04-30 15:44 | SUR.PHASEI ---
1544 Patient arrived to recovery resting comfortably in [facility], sleeping and able to arouse with verbal prompting, then patient drifts back to sleep, breathing unlabored, vital signs stable, denies pain, dressing intact to abdomen; yomi, adaptic, abd, medipore tape, with abdominal binder, no bleeding noted, NG tube in place; 65 to right nares, with green fluid in tubing, will returns supervisor to low intermittent suction per MD order, urinary catheter 16F in place with leg secure; draining to gravity with clear, yellow, urine present in taylor bag, lung sounds clear upon auscultation, bilateral radial pulses present when palpated, report received from Dr. Cedeno and Felecia HARRIS
--- NOTE | 2024-04-30 15:47 | PD.SUROPNT ---
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 Patient therefore required resection of this bowel Procedure Description After the patient was brought to the operating room endotracheal anesthesia was given. Abdomen was prepped and draped usual manner with ChloraPrep solution. Timeout was performed. Then I made an incision over the lower abdomen and abdominal cavity was entered. It was immediately clear that the patient had ischemia because bloody fluid came out of the peritoneal cavity. This was aspirated. Then I realized that patient had necrotic bowel involving the terminal ileum at least about 2 feet. Thorough exploration was carried out to make sure there is no other ischemia. Warm irrigation was carried out irrigate the peritoneal cavity. Then I delivered the necrotic bowel and resected this using a KAILA-75 at the junction of the ischemic and normal bowel. I used a Doppler to see if there is a flow even though I could not feel a definite pulsation. The mesentery was divided using an Enseal. I decided to do a primary anastomosis and this was accomplished by doing end to end anastomosis using 3-0 silk sutures for repeat serosa on 3-0 chromic. They also removed appendix to prevent any diagnostic problems postoperatively if the patient has any pain. This was done by tying the base of the appendix with 2-0 silk on removing the mesoappendix using an Enseal. For the entire thickness of the bowel wall. At the end the anastomosis appeared strong. There is no discoloration. Then the rent in the mesentery was closed with interrupted 3-0 silk. Wound was again irrigated with warm saline solution to make sure there is passive dilatation and healthy bowel. Then I closed the wound in 1 layer using running PDS. Subcutaneous tissue was irrigated extensively with saline solution and a injected half percent Marcaine for analgesia. Skin was closed loosely with yomi even though there is a chance that she may develop a wound infection. Anesthesia GETA Pathology / specimen Other (1. Ischemic gangrenous ileum, #2 incidental appendix) IVF Infused 1,200 Estimated Blood Loss 50 Condition Stable Disposition PACU Surgeon Oneida Figueroa MD Surgical Staff Operation Date: 04/30/24 17:00 <No data on this case meets the specified criteria>
--- NOTE | 2024-04-30 16:44 | SUR.PHASEI ---
Addendum entered by Sheridan Regalado RN 04/30/24 17:21: output 50ml from NG tube Original Note: 1636 Report given to Cami HARRIS, patient meets discharge criteria from recovery, awake and alert, on oxygen 3L via nasal cannula, breathing unlabored, vital signs stable, denies pain, dressing intact to abdomen, with abdominal binder, no bleeding noted, NG tube in place; 65 to right nares, with green fluid in tubing, hooked up to low intermittent suction per MD order, urinary catheter 16F in place with leg secure; draining to gravity with clear, yellow, urine present in taylor bag, lung sounds clear upon auscultation, denies nausea. 0698 Patient transported via rney to room 382 without incident, Cami and HUSSAIN promptly in patients room and assisted with transfer from [place] to bed, patient has 4 daughters in her room a bedside.
--- NOTE | 2024-04-30 17:05 | PD.ANESPROG ---
Documentation for date of: 04/30/24 ANESTHESIA NOTE: Patient had GETA for emergent ex lap earlier today that showed necrotic bowel and had bowel resection and appendectomy. Pre-op, I saw her in holding with her daughter. She appeared lethargic and felt warm to touch but answered questions appropriately. They reported 2 day hx of abdominal pain and she had nausea and vomiting last night and earlier today. She had NGT in place. She did well intra-op, intubated and extubated uneventfully. Her NGT was placed on suction prior to induction of anesthesia and it immediately put out 500 cc of dark liquid, and during the case it put out another 700 cc of dark liquid. She received 1 L of NS intra-op and 250 cc of 5% Albumin, UOP 75 cc. She was given her due Zosyn intra-op and also 40 mg IV Protonix. Her NGT was advanced from 56 cm at her nose to 65 cm per the surgeon's on-field guidance. She did well in PACU, resting calmly throughout, post op pain well controlled, family updated in the waiting room, and was just transferred back to floor. Mauricio Cedeno MD Anesthesia Progress Note Progress Note Most recent Vital Signs: Last Vital Signs Temp 97.3 F 04/30/24 17:01 Pulse 84 04/30/24 17:01 Resp 17 04/30/24 17:01 BP 147/74 H 04/30/24 17:01 Pulse Ox 98 04/30/24 17:01 O2 Del Method Nasal Cannula 04/30/24 17:01 O2 Flow Rate 3 04/30/24 17:01
[2024-04-30] MEDS: SODIUM CHLORIDE 0.9% 1000 ML 1,000 ML 100 ML IV (20:01)
--- NOTE | 2024-04-30 20:58 | PD.IMPROG ---
Documentation for date of: 04/30/24 Subjective Subjective Interval history: Operative report right Terminal ileum ischemic requiring resection with primary anastomosis Exam Vital Signs Temp Pulse Resp BP Pulse Ox O2 Del Method O2 Flow Rate 97.6 F 78 18 134/65 H 96 Room Air 3 04/30/24 20:00 04/30/24 20:00 04/30/24 20:00 04/30/24 20:00 04/30/24 20:00 04/30/24 20:00 04/30/24 18:30 Objective Labs 04/30/24 04:56 04/30/24 04:56 Labs: Laboratory Results - last 24 hr 04/30/24 04:56 WBC 25.1 H D RBC 4.37 Hgb 11.5 L Hct 34.7 L MCV 79 L MCH 26.3 MCHC 33.1 RDW Std Deviation 40.5 Plt Count 204 D Neut % (Auto) 88 H Lymph % (Auto) 3 L [place] % (Auto) 8 Eos % (Auto) 0 Baso % (Auto) 0 Neut # (Auto) 22.2 H Lymph # (Auto) 0.8 L [place] # (Auto) 1.9 H Eos # (Auto) 0.0 Baso # (Auto) 0.0 Immature Gran # (Auto) 0.15 H Absolute Nucleated RBC 0.00 Immature Gran % 1 H Nucleated RBC % 0 Sodium 136 Potassium 4.6 D Chloride 107 Carbon Dioxide 21.1 Anion Gap 8 BUN 19 Creatinine 0.6 Estim Creat Clear Calc 91.9 eGFR > 60 BUN/Creatinine Ratio 32 H Glucose 136 H D Calculated Osmolality 276 Calcium 9.0 Phosphorus 2.6 Magnesium 2.0 Impressions Impression: # Ischemic small bowel requiring resection and primary anastomosis Continue postoperative care Assessment & Plan A&P Narrative # Acute onset of abdominal pain with abnormal CT scan of the abdomen pelvis suggestive of regional ileitis rather infectious or inflammatory unknown at the moment Plan Clear liquid diet IV Zosyn IV Solu-Medrol Pain control as necessary ANCA antibody Stool for culture and sensitivity Replace potassium Once patient is improves might need colonoscopy with intubation of the terminal ileum to get biopsies of the terminal ileum to establish a diagnosis Recommend surgical consultation in case the patient deteriorates may need surgical intervention at that time Other medical problems include # Essential hypertension # Hyperlipidemia Thank you once again for the opportunity to participate in the care of this patient Time Spent With Patient Time: Total time spent is greater than 50% in coordination of care (as documented) at patient's floor/unit and/or counseling patient:
[2024-05-01] VITALS (7 sets, daily range): BP systolic 121–157; BP diastolic 59–69; PULSE 82–99; RESP 16–96; TEMP 36.5–37.5; O2SAT 92–94
[2024-05-01] MEDS: PIPER/TAZO 3.375 GM 50 ML IV ×3 (05:35→21:42)
[2024-05-01] MEDS: SODIUM CHLORIDE 0.9% 1000 ML 1,000 ML 100 ML IV (05:51)
[2024-05-01] MEDS: HEPARIN SOD INJ 5000 UNIT/ML VIAL SC ×3 (05:52→21:44)
[2024-05-01 05:58] LABS: Basophils % (Auto) 0 % (0-2.5); Eosinophils % (Auto) 0 % (0-10); Hematocrit 27.1 % (36.0-46.0); Immature Granulocytes % (Auto) 1 % (0-0); Lymphocytes # (Auto) 0.6 Thou/mm3 (1.0-4.8); Lymphocytes % (Auto) 4 % (10-50); Mean Corpuscular HGB Conc 32.8 g/dl (31.0-37.0); Mean Corpuscular Hemoglobin 26.8 pg (25.0-35.0); Mean Corpuscular Volume 82 fL (80-100); Monocytes % (Auto) 7 % (0-12); Neutrophils # (Auto) 14.2 Thou/mm3 (1.8-7.7); Neutrophils % (Auto) 89 % (37-80); Nucleated Red Blood Cell % 0 /100 WBC (0); Platelet Count 145 Thou/mm3 (140-440); RDW Standard Deviation 42.3 fL (36.4-46.3); Red Blood Count 3.32 Miln/mm3 (4.00-5.20)
[2024-05-01 06:02] LABS: Hemoglobin 8.9 g/dL (12.0-16.0)
[2024-05-01 06:41] LABS: Alanine Aminotransferase 11 U/L (10-49); Albumin, Serum 2.9 gm/dL (3.4-4.8); Albumin/Globulin Ratio 2.1 (1.2-2.2); Alkaline Phosphatase 49 U/L (46-116); Anion Gap 8 (7-16); Aspartate Amino Transferase 12 U/L (0-34); BUN/Creatinine Ratio 43 Ratio (12-20); Blood Urea Nitrogen 17 mg/dL (9-23); Calcium 8.1 mg/dL (8.3-10.6); Carbon Dioxide 21.2 mMol/L (20.0-31.0); Chloride 114 mMol/L (98-107); Creatinine (Component) 0.4 mg/dL (0.6-1.3); Estimated Creatinine Clearance 137.9 mL/min (>60); Globulin 1.4 gm/dL (2.3-3.5); Glucose 112 mg/dL (74-106); Magnesium 1.9 mg/dL (1.6-2.6); Osmolality,Calculated 287 (275-295); Phosphorous 2.5 mg/dL (2.4-5.1); Potassium 3.9 mMol/L (3.4-5.1); Sodium 143 mMol/L (136-145); Total Protein 4.3 gm/dL (5.7-8.2); eGFR > 60 See Note
[2024-05-01 08:43] LABS: Cardiac Risk Estimate 2.4 RATIO (3.7-5.6); Cholesterol 78 mg/dL (132-200); HDL Cholesterol 32 mg/dL (40-60); LDL Cholesterol,Calculated 27 mg/dL (0-130); Triglycerides 94 mg/dL (30-150)
[2024-05-01] MEDS: DEXTROSE 5%-WATER 1,000 ML 100 ML IV ×2 (08:48→19:39)
[2024-05-01 08:51] LABS: Glucose Estimated Average 114 mg/dL (80-131); Hemoglobin A1C 5.6 % Hgb (4.8-6.0)
--- NOTE | 2024-05-01 12:03 | ESPR_ITS ---
<Statement entered by Ronnell Krishnan MD - 05/01/24 16:43> Senior Resident Attestation: I supervised/discussed management plan with international trade analyst physician Dr. Bhatia, and was involved in the care of this patient. I personally saw and examined the patient and discussed the assessment and plan with the entire medicine team, including my attending. I agree with the assessment and plan as documented. Patient was seen and examined at the bedside. No overnight events. She underwent exploratory laparatomy yesterday and was found to have gangrene and ischemia of the ileum about 1 feet from the ileocecal junction, therefore required resection of this bowel. She is post op day 1 today reports mild pain at incision site. She was upgraded to Jolicloud to monitor her for possible arrhythmia. We will do CTA once patient is more stable. We will continue current management. Patient's care was discussed with attending physician, Dr. Medina. Ronnell Krishnan MD PGY-2. Documentation for date of: 05/01/24 Subjective Subjective Interval history: Patient seen at bedside this morning. Patient underwent a successful ex lap by Dr. Pollard who resected a portion of the patient's small bowel given to it being necrotic due to ischemia and then did an anastomosis. Patient tolerated procedure well and 2 days in much better spirits. Patient has still not passed any bowel movements or gas at this time. Will continue current management. Ordered echo to rule out possible causes of thrombosis. No other complaints at this time. Exam Vital Signs Temp Pulse Resp BP Pulse Ox O2 Del Method O2 Flow Rate 98.1 F 82 20 148/69 H 92 L Nasal Cannula 3 05/01/24 08:00 05/01/24 08:00 05/01/24 08:00 05/01/24 08:00 05/01/24 08:00 05/01/24 08:00 05/01/24 08:00 Narrative Exam General: A/O x3, no acute distress, well-nourished, well-developed Eyes: PERRL, EOMI. Anicteric, vision grossly intact. Ears: No ear pain, no ear discharge, Hearing grossly intact. Nose: No nasal discharge. Mouth/Throat: Dry mucous membranes, no redness, no lesions. Neck: Neck supple, non-tender, no cervical lymphadenopathy. Lungs: Clear PRISCA to auscultation and percussion, No accessory muscle use. Cardio: Normal S1/S2, regular rhythm, no murmurs, no JVD. Abdomen: Soft, no tenderness, no palpable masses, peristalsis present, no guarding or rebound. Clean dressing over surgical wound on midline abdomen. Extremities: Symmetrical, no significant deformities, no peripheral edema , non-tender, peripheral pulses presents. Skin: No rashes, no lesions, warm to touch. Neuro: No focal neurological deficits. motor and sensory intact Psych: Cooperative, appropriate mood and effect. Objective Labs 05/01/24 05:22 05/01/24 05:22 Labs: Laboratory Results - last 24 hr 05/01/24 05:22 WBC 16.0 H D RBC 3.32 L Hgb 8.9 L D Hct 27.1 L MCV 82 MCH 26.8 MCHC 32.8 RDW Std Deviation 42.3 Plt Count 145 D Neut % (Auto) 89 H Lymph % (Auto) 4 L [place] % (Auto) 7 Eos % (Auto) 0 Baso % (Auto) 0 Neut # (Auto) 14.2 H Lymph # (Auto) 0.6 L [place] # (Auto) 1.0 H Eos # (Auto) 0.0 Baso # (Auto) 0.0 Immature Gran # (Auto) 0.10 H Absolute Nucleated RBC 0.00 Immature Gran % 1 H Nucleated RBC % 0 Sodium 143 Potassium 3.9 D Chloride 114 H Carbon Dioxide 21.2 Anion Gap 8 BUN 17 Creatinine 0.4 L Estim Creat Clear Calc 137.9 eGFR > 60 BUN/Creatinine Ratio 43 H Glucose [address] Glu mg/dL 114 Hemoglobin A1c 5.6 Calculated Osmolality 287 Calcium 8.1 L Corrected Calcium 9.0 Phosphorus 2.5 Magnesium 1.9 Total Bilirubin 1.0 AST 12 ALT 11 Alkaline Phosphatase 49 Total Protein 4.3 L Albumin 2.9 L D Globulin 1.4 L Albumin/Globulin Ratio 2.1 Triglycerides 94 Cholesterol 78 L LDL Cholesterol, Calc 27 HDL Cholesterol 32 L Cholesterol/HDL Ratio 2.4 L Quality Measures Quality Measures none Assessment & Plan Assessment Current Active Medications: Generic Name Dose Route Start Last Admin Trade Name Freq PRN Reason Stop Dose Admin Acetaminophen 650 mg 04/28/24 06:33 Acetaminophen 325 Mg Tablet PO 05/28/24 06:32 Q6H PRN Mild Pain 1-3 or Fever >100.4 Atorvastatin Calcium 20 mg 11/23/24 21:00 04/30/24 21:31 Atorvastatin Calcium 20 Mg Tablet PO 05/28/24 20:59 Not Given HS GARRET Heparin Sodium (Porcine) 5,000 unit 04/28/24 06:45 05/01/24 05:52 Heparin Sod Inj 5000 Unit/Ml Vial SC 05/12/24 06:44 5,000 unit Q8HR GARRET Administration Hydromorphone HCl 1 mg 04/28/24 12:31 04/28/24 20:11 Hydromorphone Inj 2 Mg/Ml Vial IVP 05/03/24 06:32 1 mg Q4HR PRN Administration PAIN SCALE 7-10 (Severe Piperacillin/Tazobactam/Dextrose 50 mls @ 12.5 mls/hr 04/28/24 11:30 05/01/24 05:35 Zosyn IV 05/05/24 11:29 12.5 mls/hr Q8HR GARRET Administration Dextrose 1,000 mls @ 100 mls/hr 05/01/24 08:45 05/01/24 08:48 D5w IV 05/01/24 18:44 100 mls/hr .Q10H ONE Administration Ondansetron HCl 4 mg 04/28/24 06:33 04/30/24 10:44 Ondansetron Inj 2 Mg/Ml Inj 2 Ml IV 05/28/24 06:32 4 mg Q6H PRN Administration NAUSEA OR VOMITING Protocol Pantoprazole Sodium 40 mg 04/28/24 09:00 05/01/24 08:31 Pantoprazole 40 Mg Tablet PO 05/28/24 08:59 Not Given QDAY GARRET Plan 63-year-old female with past medical history of hypertension and hyperlipidemia was admitted to the hospital on 04/28/2024 for intractable abdominal pain and gastroenteritis. #Ischemic bowel s/p resection and anastomosis #Intractable abdominal pain # Leukocytosis ?Patient came in with chief complaint of diffuse abdominal pain rating a 10 out of 10, but no diarrhea or hematochezia. ?Patient states he has been constipated since the day prior to admission ?Given concern for SBO as patient had distended small bowel loops as well as nausea and NG tube was placed and general surgery was consulted. ?DDx IBD such as Crohn's versus mesenteric ischemia versus SBO ?Abdomen/pelvis CT on 04/28/2024 show markedly abnormal small bowel loops and mildly distended, prominent wall thickening with edema adjacent to multiple small bowel loops. -Abd Xray showed distended small bowel loops ?DC'd IV Solu-Medrol [04/28/2024?04/29/2024] ?WBC 16 today ?Patient underwent successful small bowel resection secondary to ischemia and anastomosis. ?Pending patient to have a bowel movement or pass gas in order to start diet. Plan: -NPO ?Bowel rest for now -IV fluids ?Continue Zosyn [04/28/2024?] ?Stool cultures and an Antibody still pending -Lipid panel, A1c, and echo ordered -General surgeon consulted, appreciate recommendations ?GI consulted, appreciate recommendations ?Will continue to monitor #Hyperkalemia, resolved ?Patient initially came in hypokalemic and received a total of 120 mEq of potassium ?Potassium yesterday was 6.7 ?Repeat potassium 6.9 after 10 units of IV insulin, amp of D50, and 1 g of calcium ?EKG did not show any peaked T waves -Potassium today is 3.9 Plan: ?Will continue to monitor #Microcytic chronic anemia ?on admission patient's hemoglobin was 13.9 ?Hemoglobin today was 8.9 most likely due to some blood loss from surgery Plan: ?will transfuse hemoglobin less than 7 ?Will continue to monitor #Hx of HTN ?Held losartan 25 mg daily as patient was hyperkalemic #Hx of HLD ?Continue atorvastatin 20 mg p.o. at bedtime #Incidental finding, pulmonary granuloma ?5 mm granuloma of right middle lobe ?Follow-up outpatient Disposition: Patient seen in med surg, no BM yet, s/p Small bowel resection and anastamosis. Diet: NPO GI prophylaxis: protonix DVT prophylaxis: heparin sc Code: Full Case disclosed with Attending Dr. Medina and My senior Dr. Krishnan PGY2. Conrado Phillip PGY1 Attending Provider Attestation/Addendum I, Summer Medina, DO, attest that I was physically present for the simms portions of the service and evaluated the patient with the resident and I reviewed and discussed the case with the resident and agree with the resident's findings and plans of care as documented above Patient seen and evaluated this a.m. She is status post exploratory laparotomy and resection of terminal ileum with primary end-to-end anastomosis, some of this incidental appendectomy. Patient was found to have gangrene and ischemia of the ileum about 1 feet from the ileocecal junction. Case was discussed with surgeon following surgery yesterday and today during which about 2 feet of bowel was ischemic with an area of narrowing, but he did not find any band that may have caused a mechanical obstruction. Unclear if obstruction is mechanical versus vascular. Once patient is more stable, will consider CTA to rule out cardiac causes. Plan is to hydrate patient at this time. She remains n.p.o. pending bowel function to return. Will allow surgeon to advance as he wishes. Patient denies having passed any gas. She reports minimal pain at this time. Dressing appears clean dry and intact. Will order incentive spirometer as well. Continue with pain control as needed. Will order an echo to rule out any other causes for thrombosis. Daughter at bedside. All questions and concerns addressed to patient and family satisfaction at bedside.
[2024-05-01] MEDS: HYDROmorphone INJ 2 MG/ML VIAL 1 MG IVP (13:11)
--- NOTE | 2024-05-01 15:13 | ECHO_ITS ---
Transthoracic Echo Report Ht (in): 64 Wt (lb): 145 Exam Location: [facility] Status: Inpatient Wall Cleaner: Inés Mckenna Indications: Procedure Performed: BP: 103 / 71 HR: 88 Rhythm: Sinus Technical Quality: Technically difficult study MEASUREMENTS (Male / Female) Normal Values 2D ECHO LV Diastolic Diameter PLAX 3.5 cm 4.2 - 5.9 / 3.9 - 5.3 cm LV Systolic Diameter PLAX 2.2 cm IVS Diastolic Thickness 0.8 cm 0.6 - 1.0 / 0.6 - 0.9 cm LVPW Diastolic Thickness 1.1 cm 0.6 - 1.0 / 0.6 - 0.9 cm LV Relative Wall Thickness 0.5 LVOT Diameter 1.6 cm LA Volume Index 22.1 cm?/m? 16 - 28 cm?/m? M-MODE Aortic Root Diameter MM 2.4 cm LA Systolic Diameter MM 2.8 cm LA Ao Ratio MM 1.2 AV Cusp Separation MM 1.4 cm DOPPLER AV Peak Velocity 201.0 cm/s AV Peak Gradient 16.2 mmHg AV Mean Gradient 7.0 mmHg AV Velocity Time Integral 32.0 cm AI Peak Velocity 317.0 cm/s AI Peak Gradient 40.2 mmHg AI Pressure Half Time 421.0 ms LVOT Peak Velocity 145.0 cm/s LVOT Peak Gradient 8.4 mmHg LVOT Velocity Time Integral 27.4 cm LVOT Cardiac Index 2795.2 cm?/min?m? AV Area Cont Eq vti 1.7 cm? AV Area Cont Eq pk 1.5 cm? MV Peak Velocity 116.0 cm/s MV Peak Gradient 5.4 mmHg MV Mean Velocity 74.0 cm/s MV Mean Gradient 3.0 mmHg MV Area PHT 3.7 cm? Mitral E Point Velocity 79.1 cm/s Mitral A Point Velocity 106.0 cm/s Mitral E to A Ratio 0.7 LV E' Lateral Velocity 11.4 cm/s Mitral E to LV E' Lateral Ratio 6.9 LV E' Septal Velocity 9.0 cm/s Mitral E to LV E' Septal Ratio 8.8 TR Peak Velocity 245.0 cm/s TR Peak Gradient 24.0 mmHg FINDINGS Left Ventricle Normal left ventricular size, wall thickness, systolic function with no obvious regional wall motion abnormalities. The ejection fraction is visually estimated at 60-65%. Right Ventricle The right ventricle is normal in size and systolic function. The estimated right ventricular systoli c pressure, 29mmHg. RAP 5. Left Atrium The left atrium is normal by two-dimensional, color flow and Doppler imaging with no structural abnormalities, no thrombus formation present. Right Atrium The right atrium is normal by two-dimensional imaging, color flow and Doppler imaging with no struct ural abnormalities, no thrombus formation present. Atrial Septum The interatrial septum appears normal with no evidence of a shunt. Aorta The aorta is normal by two-dimensional, color flow and Doppler interrogation. Mitral Valve The mitral valve is normal by two-dimensional, color flow and Doppler interrogation. There is trace mitral valve regurgitation. Aortic Valve The aortic valve is trileaflet and normal by two-dimensional, color flow and Doppler interrogation. There is moderate aortic valve regurgitation. Tricuspid Valve The tricuspid valve is normal by two-dimensional, color flow and Doppler interrogation. There is tra ce tricuspid valve regurgitation. Pulmonic Valve The pulmonic valve is not well visualized. There is no significant pulmonic valve regurgitation. Vessels The pulmonary artery appears normal. The inferior vena cava pulmonary and hepatic veins appear khari l. Pericardium The pericardium is normal by two-dimensional imaging. There is no significant pericardial effusion. CONCLUSIONS Indication: HTN, IBD and Rule out thrombosis Normal LV size and function. Stage I diastolic dysfunction. Estimated EF 60-65% Normal RV size and function. Trace MR, TR. Mild to Moderate AI. Zac Ojeda (Electronically Signed) Final Date: 02 May 2024 22:38
--- NOTE | 2024-05-01 19:33 | ESPR_ITS ---
Documentation for date of: 05/01/24 Subjective Subjective Interval history: Doing much better post surgical intervention Alert oriented No passage of flatus no bowel movement no nausea vomiting Exam Vital Signs Temp Pulse Resp BP Pulse Ox O2 Del Method O2 Flow Rate 98.1 F 93 18 145/60 H 93 L Room Air 3 05/01/24 16:00 05/01/24 16:25 05/01/24 16:25 05/01/24 16:00 05/01/24 16:00 05/01/24 16:00 05/01/24 08:00 Objective Labs 05/01/24 05:22 05/01/24 05:22 Labs: Laboratory Results - last 24 hr 05/01/24 05:22 WBC 16.0 H D RBC 3.32 L Hgb 8.9 L D Hct 27.1 L MCV 82 MCH 26.8 MCHC 32.8 RDW Std Deviation 42.3 Plt Count 145 D Neut % (Auto) 89 H Lymph % (Auto) 4 L [place] % (Auto) 7 Eos % (Auto) 0 Baso % (Auto) 0 Neut # (Auto) 14.2 H Lymph # (Auto) 0.6 L [place] # (Auto) 1.0 H Eos # (Auto) 0.0 Baso # (Auto) 0.0 Immature Gran # (Auto) 0.10 H Absolute Nucleated RBC 0.00 Immature Gran % 1 H Nucleated RBC % 0 Sodium 143 Potassium 3.9 D Chloride 114 H Carbon Dioxide 21.2 Anion Gap 8 BUN 17 Creatinine 0.4 L Estim Creat Clear Calc 137.9 eGFR > 60 BUN/Creatinine Ratio 43 H Glucose [address] Glu mg/dL 114 Hemoglobin A1c 5.6 Calculated Osmolality 287 Calcium 8.1 L Corrected Calcium 9.0 Phosphorus 2.5 Magnesium 1.9 Total Bilirubin 1.0 AST 12 ALT 11 Alkaline Phosphatase 49 Total Protein 4.3 L Albumin 2.9 L D Globulin 1.4 L Albumin/Globulin Ratio 2.1 Triglycerides 94 Cholesterol 78 L LDL Cholesterol, Calc 27 HDL Cholesterol 32 L Cholesterol/HDL Ratio 2.4 L Impressions Impression: # Ischemic distal small bowel status post small bowel resection and primary anastomosis Continue current management Assessment & Plan A&P Narrative # Acute onset of abdominal pain with abnormal CT scan of the abdomen pelvis suggestive of regional ileitis rather infectious or inflammatory unknown at the moment Plan Clear liquid diet IV Zosyn IV Solu-Medrol Pain control as necessary ANCA antibody Stool for culture and sensitivity Replace potassium Once patient is improves might need colonoscopy with intubation of the terminal ileum to get biopsies of the terminal ileum to establish a diagnosis Recommend surgical consultation in case the patient deteriorates may need surgical intervention at that time Other medical problems include # Essential hypertension # Hyperlipidemia Thank you once again for the opportunity to participate in the care of this patient Time Spent With Patient Time: Total time spent is greater than 50% in coordination of care (as documented) at patient's floor/unit and/or counseling patient:
[2024-05-02] VITALS (7 sets, daily range): BP systolic 103–139; BP diastolic 55–80; PULSE 75–93; RESP 16–18; TEMP 36.1–36.9; O2SAT 94–99; BMI 15.0
[2024-05-02] MEDS: PIPER/TAZO 3.375 GM 50 ML IV ×3 (05:17→21:01)
[2024-05-02] MEDS: HEPARIN SOD INJ 5000 UNIT/ML VIAL SC ×3 (05:20→21:00)
[2024-05-02 05:51] LABS: Basophils % (Auto) 0 % (0-2.5); Eosinophils % (Auto) 0 % (0-10); Hemoglobin 9.5 g/dL (12.0-16.0); Immature Granulocytes % (Auto) 1 % (0-0); Immature Granulocytes Auto 0.05 Thou/mm3 (0.00-0.00); Lymphocytes # (Auto) 0.9 Thou/mm3 (1.0-4.8); Lymphocytes % (Auto) 9 % (10-50); Mean Corpuscular HGB Conc 32.8 g/dl (31.0-37.0); Mean Corpuscular Hemoglobin 26.7 pg (25.0-35.0); Mean Corpuscular Volume 82 fL (80-100); Monocytes # (Auto) 0.6 Thou/mm3 (0.0-0.8); Monocytes % (Auto) 6 % (0-12); Neutrophils # (Auto) 8.4 Thou/mm3 (1.8-7.7); Neutrophils % (Auto) 84 % (37-80); Nucleated Red Blood Cell % 0 /100 WBC (0); Platelet Count 183 Thou/mm3 (140-440); RDW Standard Deviation 41.6 fL (36.4-46.3); Red Blood Count 3.56 Miln/mm3 (4.00-5.20)
[2024-05-02 06:40] LABS: Alanine Aminotransferase 15 U/L (10-49); Albumin, Serum 3.4 gm/dL (3.4-4.8); Albumin/Globulin Ratio 1.9 (1.2-2.2); Alkaline Phosphatase 58 U/L (46-116); Anion Gap 6 (7-16); Aspartate Amino Transferase 17 U/L (0-34); BUN/Creatinine Ratio 30 Ratio (12-20); Bilirubin,Total 1.1 mg/dL (0.3-1.2); Blood Urea Nitrogen 12 mg/dL (9-23); Calcium 8.7 mg/dL (8.3-10.6); Calcium (Corrected) 9.2 mg/dL (8.5-10.1); Carbon Dioxide 26.5 mMol/L (20.0-31.0); Chloride 105 mMol/L (98-107); Creatinine (Component) 0.4 mg/dL (0.6-1.3); Estimated Creatinine Clearance 137.9 mL/min (>60); Globulin 1.8 gm/dL (2.3-3.5); Glucose 121 mg/dL (74-106); Osmolality,Calculated 274 (275-295); Potassium 3.5 mMol/L (3.4-5.1); Sodium 137 mMol/L (136-145); Total Protein 5.2 gm/dL (5.7-8.2); eGFR > 60 See Note
[2024-05-02] MEDS: PANTOPRAZOLE 40 MG TABLET PO (08:13)
--- NOTE | 2024-05-02 11:42 | PD.SURPROG ---
Documentation for date of: 05/02/24 Subjective Subjective Brief History: Patient speaks only Arabic and the history was obtained by daughters who are at the bedside. Patient was in his usual health until around 1:00 in the morning on Tuesday morning when she started he started experiencing pain over the lower abdomen. She had vomited once and she was brought to the emergency room. Patient had a normal bowel movement around 11:00 Tuesday night. Since then she has not passed gas or had any bowel movement. Patient was in severe pain which she described as 10 out of 10 and was given narcotics. Patient also was given some Solu-Medrol because x-ray reading suggesting enteritis. But the patient denies any history of chronic inflammatory disease or diarrhea or Crohn's disease or ulcerative colitis. This is the first episode of abdominal pain for this patient. She underwent colonoscopy for screening 1 year ago and it was normal. Her other medical problem consisted of possible hypertension and cholesterol. Past surgery none Narrative: The patient looks more awake and alert. She does not have much pain and she is not using a lot of narcotics Exam Vital Signs Temp Pulse Resp BP Pulse Ox O2 Del Method O2 Flow Rate 97.1 F 89 17 122/55 L 94 L Room Air 3 05/02/24 07:59 05/02/24 07:59 05/02/24 07:59 05/02/24 07:59 05/02/24 07:59 05/02/24 07:59 05/01/24 08:00 Vital signs are normal other than mild tachycardia Routine Abdominal Exam Comments: Abdominal examination is negative. She is passing flatus Results Results: Laboratory Laboratory Narrative: Lab results show normal WBC Assessment & Plan Assessment Additional comments: Impression: Satisfactory postoperative course Plan Plan: We shall start her on p.o. fluids today and increase her ambulation. Maybe leave the Fink catheter 1 more day Procedures Procedures Explored laparotomy and resection of the terminal ileum and primary end-to-end anastomosis Incidental appendectomy
--- NOTE | 2024-05-02 12:21 | PC.PT ---
PT eval only. Patient is I with transfers and ambulation without AD. Family or staff can ambulate the patient prn.
--- NOTE | 2024-05-02 15:19 | PC.NURSE ---
Called for new trash can.
--- NOTE | 2024-05-02 15:21 | ESPR_ITS ---
Documentation for date of: 05/02/24 Subjective Subjective Interval history: Patient was seen and examined at bedside. No acute overnight events. Patient was started on clear liquid diet today and was able to tolerate with some abdominal pain. She still have not had any bowel movements. She is able to tolerate oral fluids therefore IVF was discontinued. Will continue current management with Zosyn and follow-up with general surgery and gastroenterology. Exam Vital Signs Temp Pulse Resp BP Pulse Ox O2 Del Method O2 Flow Rate 97.8 F 93 17 128/59 L 96 Room Air 3 05/02/24 12:00 05/02/24 12:00 05/02/24 12:00 05/02/24 12:00 05/02/24 12:00 05/02/24 12:00 05/01/24 08:00 Narrative Exam Gen: Well-developed and well-nourished female. HEENT: NCAT, PERRLA, EOMI, MMM, anicteric conjunctivae. CVS: normal S1 and S2. RRR. No M/R/G. Resp: CTA B/L. No rhonchi, rales, crackles or wheezing. Abd: soft, mildly tender, non-distended. BS+ in all 4 quadrants. Clean dressing over surgical wound on midline abdomen. MSK: Good ROM in BUE & BLE. No edema or rash. Neuro: CN II-XII grossly intact. Strength 5/5 in BUE & BLE. Alert and oriented x3. Psych: appropriate mood and affect. Objective Labs 05/03/24 05:45 05/03/24 05:45 Labs: Laboratory Results - last 24 hr 05/02/24 05:17 WBC 10.0 D RBC 3.56 L Hgb 9.5 L Hct 29.0 L MCV 82 MCH 26.7 MCHC 32.8 RDW Std Deviation 41.6 Plt Count 183 D Neut % (Auto) 84 H Lymph % (Auto) 9 L [place] % (Auto) 6 Eos % (Auto) 0 Baso % (Auto) 0 Neut # (Auto) 8.4 H Lymph # (Auto) 0.9 L [place] # (Auto) 0.6 Eos # (Auto) 0.0 Baso # (Auto) 0.0 Immature Gran # (Auto) 0.05 H Absolute Nucleated RBC 0.00 Immature Gran % 1 H Nucleated RBC % 0 Sodium 137 Potassium 3.5 Chloride 105 Carbon Dioxide 26.5 Anion Gap 6 L BUN 12 Creatinine 0.4 L Estim Creat Clear Calc 137.9 eGFR > 60 BUN/Creatinine Ratio 30 H Glucose 121 H Calculated Osmolality 274 L Calcium 8.7 Corrected Calcium 9.2 Total Bilirubin 1.1 AST 17 ALT 15 Alkaline Phosphatase 58 Total Protein 5.2 L Albumin 3.4 D Globulin 1.8 L Albumin/Globulin Ratio 1.9 Quality Measures Quality Measures VTE prophylaxis Assessment & Plan Assessment Current Active Medications: Generic Name Dose Route Start Last Admin Trade Name Freq PRN Reason Stop Dose Admin Acetaminophen 650 mg 04/28/24 06:33 Acetaminophen 325 Mg Tablet PO 05/28/24 06:32 Q6H PRN Mild Pain 1-3 or Fever >100.4 Atorvastatin Calcium 20 mg 04/28/24 21:00 05/01/24 21:52 Atorvastatin Calcium 20 Mg Tablet PO 05/28/24 20:59 Not Given HS GARRET Heparin Sodium (Porcine) 5,000 unit 04/28/24 06:45 05/02/24 15:07 Heparin Sod Inj 5000 Unit/Ml Vial SC 05/12/24 06:44 5,000 unit Q8HR GARRET Administration Hydromorphone HCl 1 mg 04/28/24 12:31 05/01/24 13:11 Hydromorphone Inj 2 Mg/Ml Vial IVP 05/03/24 06:32 1 mg Q4HR PRN Administration PAIN SCALE 7-10 (Severe Piperacillin/Tazobactam/Dextrose 50 mls @ 12.5 mls/hr 04/28/24 11:30 05/02/24 15:07 Zosyn IV 05/05/24 11:29 12.5 mls/hr Q8HR GARRET Administration Ondansetron HCl 4 mg 04/28/24 06:33 04/30/24 10:44 Ondansetron Inj 2 Mg/Ml Inj 2 Ml IV 05/28/24 06:32 4 mg Q6H PRN Administration NAUSEA OR VOMITING Protocol Pantoprazole Sodium 40 mg 04/28/24 09:00 05/02/24 08:13 Pantoprazole 40 Mg Tablet PO 05/28/24 08:59 40 mg QDAY GARRET Administration Plan 63-year-old female with past medical history of hypertension and hyperlipidemia was admitted to the hospital on 04/28/2024 for intractable abdominal pain and gastroenteritis. #Ischemic bowel s/p resection and anastomosis. #Intractable abdominal pain. #Leukocytosis. ?Patient came in with chief complaint of diffuse abdominal pain rating a 10 out of 10, but no diarrhea or hematochezia. ?Patient states he has been constipated since the day prior to admission. ?Given concern for SBO as patient had distended small bowel loops as well as nausea and NG tube was placed and general surgery was consulted. ?DDx IBD such as Crohn's versus mesenteric ischemia versus SBO. ?Abdomen/pelvis CT on 04/28/2024 show markedly abnormal small bowel loops and mildly distended, prominent wall thickening with edema adjacent to multiple small bowel loops. -Abd Xray showed distended small bowel loops. ?DC'd IV Solu-Medrol [04/28/2024?04/29/2024]. ?Patient underwent successful small bowel resection secondary to ischemia and anastomosis. ?Pending patient to have a bowel movement or pass gas in order to start diet. Plan: -advanced to [facility]. -IV fluids discontinued. ?Continue Zosyn [04/28/2024?]. ?Stool cultures and an Antibody pending. -Lipid panel, A1c, and echo ordered. -General surgeon consulted, appreciate recommendations. ?GI consulted, appreciate recommendations. ?Will continue to monitor. #Microcytic chronic anemia. ?on admission patient's hemoglobin was 13..9 ?Hemoglobin today was 8.9 most likely due to some blood loss from surgery. Plan: ?will transfuse hemoglobin less than 7. ?Will continue to monitor. #Hx of HTN. ?Held losartan 25 mg daily as patient was hyperkalemic. #Hx of HLD. ?Continue atorvastatin 20 mg p.o. at bedtime. #Incidental finding, pulmonary granuloma. ?5 mm granuloma of right middle lobe. ?Follow-up outpatient. Disposition: Patient seen in med surg, no BM yet, s/p Small bowel resection and anastamosis. Diet: NPO. GI prophylaxis: protonix. DVT prophylaxis: heparin sc. Code: Full code. Plan of care discussed with attending Dr. Valdez. Ronnell Krishnan MD, PGY 2. Disclaimer: This note was dictated by speech recognition. Minor errors in neurobiologist may be present due to voice recognition software. Attending Provider Attestation/Addendum Patient was seen and examined. She is tolerating clear liquids. She is not in distress not in pain vital signs are stable. She has been afebrile. She has no abdominal distention. Patient's daughter is at the bedside. Patient had bowel surgery. She is on Zosyn. Hemoglobin stable. Discussed with housestaff.
--- NOTE | 2024-05-02 16:14 | PC.NURSE ---
Dr. Pollard aware pt. incision oozing. ABD pad applied to site. Dr. Pollard Okays this measure. Dr. galvan pt. had two bowel movements
--- NOTE | 2024-05-02 19:28 | PD.IMPROG ---
Documentation for date of: 05/02/24 Subjective Subjective Interval history: Having multiple bowel movements Extremely comfortable Soft abdomen with active bowel sounds Exam Vital Signs Temp Pulse Resp BP Pulse Ox O2 Del Method O2 Flow Rate 98.5 F 93 16 122/62 95 Room Air 3 05/02/24 16:00 05/02/24 16:00 05/02/24 16:00 05/02/24 16:00 05/02/24 16:00 05/02/24 16:00 05/01/24 08:00 Objective Labs 05/02/24 05:17 05/02/24 05:17 Labs: Laboratory Results - last 24 hr 05/02/24 05:17 WBC 10.0 D RBC 3.56 L Hgb 9.5 L Hct 29.0 L MCV 82 MCH 26.7 MCHC 32.8 RDW Std Deviation 41.6 Plt Count 183 D Neut % (Auto) 84 H Lymph % (Auto) 9 L [place] % (Auto) 6 Eos % (Auto) 0 Baso % (Auto) 0 Neut # (Auto) 8.4 H Lymph # (Auto) 0.9 L [place] # (Auto) 0.6 Eos # (Auto) 0.0 Baso # (Auto) 0.0 Immature Gran # (Auto) 0.05 H Absolute Nucleated RBC 0.00 Immature Gran % 1 H Nucleated RBC % 0 Sodium 137 Potassium 3.5 Chloride 105 Carbon Dioxide 26.5 Anion Gap 6 L BUN 12 Creatinine 0.4 L Estim Creat Clear Calc 137.9 eGFR > 60 BUN/Creatinine Ratio 30 H Glucose 121 H Calculated Osmolality 274 L Calcium 8.7 Corrected Calcium 9.2 Total Bilirubin 1.1 AST 17 ALT 15 Alkaline Phosphatase 58 Total Protein 5.2 L Albumin 3.4 D Globulin 1.8 L Albumin/Globulin Ratio 1.9 Impressions Impression: # Status post resection of the small bowel due to ischemia Advance diet as tolerated Assessment & Plan A&P Narrative # Acute onset of abdominal pain with abnormal CT scan of the abdomen pelvis suggestive of regional ileitis rather infectious or inflammatory unknown at the moment Plan Clear liquid diet IV Zosyn IV Solu-Medrol Pain control as necessary ANCA antibody Stool for culture and sensitivity Replace potassium Once patient is improves might need colonoscopy with intubation of the terminal ileum to get biopsies of the terminal ileum to establish a diagnosis Recommend surgical consultation in case the patient deteriorates may need surgical intervention at that time Other medical problems include # Essential hypertension # Hyperlipidemia Thank you once again for the opportunity to participate in the care of this patient Time Spent With Patient Time: Total time spent is greater than 50% in coordination of care (as documented) at patient's floor/unit and/or counseling patient:
[2024-05-02] MEDS: ATORVASTATIN CALCIUM 20 MG TABLET PO (20:43)
[2024-05-03] VITALS (7 sets, daily range): BP systolic 118–127; BP diastolic 52–84; PULSE 82–96; RESP 16–17; TEMP 36.1–37.1; O2SAT 94–96; BMI 24.7
[2024-05-03] MEDS: PIPER/TAZO 3.375 GM 50 ML IV (05:35)
[2024-05-03] MEDS: HEPARIN SOD INJ 5000 UNIT/ML VIAL SC ×2 (05:35→13:36)
[2024-05-03 06:31] LABS: Basophils % (Auto) 0 % (0-2.5); Eosinophils % (Auto) 0 % (0-10); Hematocrit 27.2 % (36.0-46.0); Hemoglobin 9.1 g/dL (12.0-16.0); Immature Granulocytes % (Auto) 1 % (0-0); Immature Granulocytes Auto 0.05 Thou/mm3 (0.00-0.00); Lymphocytes % (Auto) 15 % (10-50); Mean Corpuscular HGB Conc 33.5 g/dl (31.0-37.0); Mean Corpuscular Hemoglobin 26.6 pg (25.0-35.0); Mean Corpuscular Volume 80 fL (80-100); Monocytes # (Auto) 0.5 Thou/mm3 (0.0-0.8); Monocytes % (Auto) 7 % (0-12); Neutrophils # (Auto) 5.1 Thou/mm3 (1.8-7.7); Neutrophils % (Auto) 77 % (37-80); Nucleated Red Blood Cell % 0 /100 WBC (0); Platelet Count 180 Thou/mm3 (140-440); RDW Standard Deviation 41.4 fL (36.4-46.3); Red Blood Count 3.42 Miln/mm3 (4.00-5.20); White Blood Count 6.6 Thou/mm3 (3.6-11.0)
[2024-05-03 06:50] LABS: Alanine Aminotransferase 15 U/L (10-49); Albumin, Serum 3.2 gm/dL (3.4-4.8); Albumin/Globulin Ratio 1.9 (1.2-2.2); Alkaline Phosphatase 56 U/L (46-116); Anion Gap 8 (7-16); Aspartate Amino Transferase 20 U/L (0-34); BUN/Creatinine Ratio 33 Ratio (12-20); Bilirubin,Total 1.1 mg/dL (0.3-1.2); Blood Urea Nitrogen 13 mg/dL (9-23); Calcium 8.6 mg/dL (8.3-10.6); Calcium (Corrected) 9.2 mg/dL (8.5-10.1); Carbon Dioxide 25.4 mMol/L (20.0-31.0); Chloride 104 mMol/L (98-107); Creatinine (Component) 0.4 mg/dL (0.6-1.3); Estimated Creatinine Clearance 137.9 mL/min (>60); Globulin 1.7 gm/dL (2.3-3.5); Glucose 78 mg/dL (74-106); Osmolality,Calculated 272 (275-295); Potassium 3.2 mMol/L (3.4-5.1); Sodium 137 mMol/L (136-145); Total Protein 4.9 gm/dL (5.7-8.2); eGFR > 60 See Note
[2024-05-03] MEDS: PANTOPRAZOLE 40 MG TABLET PO (08:30)
--- NOTE | 2024-05-03 12:17 | ESPR_ITS ---
Documentation for date of: 05/03/24 Subjective Subjective Interval history: Having bowel movements Less abdominal pain Exam Vital Signs Temp Pulse Resp BP Pulse Ox O2 Del Method O2 Flow Rate 97.0 F 90 17 127/59 L 96 Nasal Cannula 3 05/03/24 08:00 05/03/24 08:00 05/03/24 08:00 05/03/24 08:00 05/03/24 08:00 05/03/24 08:00 05/03/24 08:00 Objective Labs 05/04/24 05:28 05/04/24 05:28 Labs: Laboratory Results - last 24 hr 05/03/24 05:45 WBC 6.6 RBC 3.42 L Hgb 9.1 L Hct 27.2 L MCV 80 MCH 26.6 MCHC 33.5 RDW Std Deviation 41.4 Plt Count 180 Neut % (Auto) 77 Lymph % (Auto) 15 [place] % (Auto) 7 Eos % (Auto) 0 Baso % (Auto) 0 Neut # (Auto) 5.1 Lymph # (Auto) 1.0 [place] # (Auto) 0.5 Eos # (Auto) 0.0 Baso # (Auto) 0.0 Immature Gran # (Auto) 0.05 H Absolute Nucleated RBC 0.00 Immature Gran % 1 H Nucleated RBC % 0 Sodium 137 Potassium 3.2 L Chloride 104 Carbon Dioxide 25.4 Anion Gap 8 BUN 13 Creatinine 0.4 L Estim Creat Clear Calc 137.9 eGFR > 60 BUN/Creatinine Ratio 33 H Glucose 78 Calculated Osmolality 272 L Calcium 8.6 Corrected Calcium 9.2 Total Bilirubin 1.1 AST 20 ALT 15 Alkaline Phosphatase 56 Total Protein 4.9 L Albumin 3.2 L Globulin 1.7 L Albumin/Globulin Ratio 1.9 Impressions Impression: # Status post small bowel resection and primary anastomosis for ischemic bowel Doing well postoperatively Continue current management Assessment & Plan A&P Narrative # Acute onset of abdominal pain with abnormal CT scan of the abdomen pelvis suggestive of regional ileitis rather infectious or inflammatory unknown at the moment Plan Clear liquid diet IV Zosyn IV Solu-Medrol Pain control as necessary ANCA antibody Stool for culture and sensitivity Replace potassium Once patient is improves might need colonoscopy with intubation of the terminal ileum to get biopsies of the terminal ileum to establish a diagnosis Recommend surgical consultation in case the patient deteriorates may need surgical intervention at that time Other medical problems include # Essential hypertension # Hyperlipidemia Thank you once again for the opportunity to participate in the care of this patient Time Spent With Patient Time: Total time spent is greater than 50% in coordination of care (as documented) at patient's floor/unit and/or counseling patient:
[2024-05-03] MEDS: PIPER/TAZO INJ 3.375 GM in SODIUM CHLORIDE 0.9% (P) 100 ML IV ×2 (13:35→21:09)
--- NOTE | 2024-05-03 15:47 | ESPR_ITS ---
Documentation for date of: 05/03/24 Subjective Subjective Interval history: Patient was seen and examined at bedside. No acute overnight events. Patient complains of generalized weakness but otherwise doing fine has minimal abdominal pain. She is able to tolerate clear liquid diet, per general surgery will be advancing to more solid. Her potassium was repleted. Will continue to monitor patient. Exam Vital Signs Temp Pulse Resp BP Pulse Ox O2 Del Method O2 Flow Rate 98.2 F 91 16 121/52 L 94 L Nasal Cannula 3 05/03/24 12:00 05/03/24 15:46 05/03/24 12:00 05/03/24 12:00 05/03/24 12:00 05/03/24 12:00 05/03/24 12:00 Narrative Exam Gen: Well-developed and well-nourished female. HEENT: NCAT, PERRLA, EOMI, MMM, anicteric conjunctivae. CVS: normal S1 and S2. RRR. No M/R/G. Resp: CTA B/L. No rhonchi, rales, crackles or wheezing. Abd: soft, mildly tender, non-distended. BS+ in all 4 quadrants. Clean dressing over surgical wound on midline abdomen. MSK: Good ROM in BUE & BLE. No edema or rash. Neuro: CN II-XII grossly intact. Strength 5/5 in BUE & BLE. Alert and oriented x3. Psych: appropriate mood and affect. Objective Labs 05/04/24 05:28 05/04/24 05:28 Labs: Laboratory Results - last 24 hr 05/03/24 05:45 WBC 6.6 RBC 3.42 L Hgb 9.1 L Hct 27.2 L MCV 80 MCH 26.6 MCHC 33.5 RDW Std Deviation 41.4 Plt Count 180 Neut % (Auto) 77 Lymph % (Auto) 15 [place] % (Auto) 7 Eos % (Auto) 0 Baso % (Auto) 0 Neut # (Auto) 5.1 Lymph # (Auto) 1.0 [place] # (Auto) 0.5 Eos # (Auto) 0.0 Baso # (Auto) 0.0 Immature Gran # (Auto) 0.05 H Absolute Nucleated RBC 0.00 Immature Gran % 1 H Nucleated RBC % 0 Sodium 137 Potassium 3.2 L Chloride 104 Carbon Dioxide 25.4 Anion Gap 8 BUN 13 Creatinine 0.4 L Estim Creat Clear Calc 137.9 eGFR > 60 BUN/Creatinine Ratio 33 H Glucose 78 Calculated Osmolality 272 L Calcium 8.6 Corrected Calcium 9.2 Total Bilirubin 1.1 AST 20 ALT 15 Alkaline Phosphatase 56 Total Protein 4.9 L Albumin 3.2 L Globulin 1.7 L Albumin/Globulin Ratio 1.9 Quality Measures Quality Measures VTE prophylaxis Assessment & Plan Assessment Current Active Medications: Generic Name Dose Route Start Last Admin Trade Name Freq PRN Reason Stop Dose Admin Acetaminophen 650 mg 04/28/24 06:33 Acetaminophen 325 Mg Tablet PO 05/28/24 06:32 Q6H PRN Mild Pain 1-3 or Fever >100.4 Atorvastatin Calcium 20 mg 04/28/24 21:00 05/02/24 20:43 Atorvastatin Calcium 20 Mg Tablet PO 05/28/24 20:59 20 mg HS GARRET Administration Heparin Sodium (Porcine) 5,000 unit 04/28/24 06:45 05/03/24 13:36 Heparin Sod Inj 5000 Unit/Ml Vial SC 05/12/24 06:44 5,000 unit Q8HR GARRET Administration Piperacillin Sod/Tazobactam 100 mls @ 25 mls/hr 05/03/24 14:00 05/03/24 13:35 Sod 3.375 gm/ Sodium Chloride IV 05/05/24 11:29 25 mls/hr Q8HR GARRET Administration Ondansetron HCl 4 mg 04/28/24 06:33 04/30/24 10:44 Ondansetron Inj 2 Mg/Ml Inj 2 Ml IV 05/28/24 06:32 4 mg Q6H PRN Administration NAUSEA OR VOMITING Protocol Pantoprazole Sodium 40 mg 04/28/24 09:00 05/03/24 08:30 Pantoprazole 40 Mg Tablet PO 05/28/24 08:59 40 mg QDAY GARRET Administration Plan 63-year-old female with past medical history of hypertension and hyperlipidemia was admitted to the hospital on 04/28/2024 for intractable abdominal pain and gastroenteritis. #Ischemic bowel s/p resection and anastomosis. #Intractable abdominal pain. #Leukocytosis. ?Patient came in with chief complaint of diffuse abdominal pain rating a 10 out of 10, but no diarrhea or hematochezia. ?Patient states he has been constipated since the day prior to admission. ?Given concern for SBO as patient had distended small bowel loops as well as nausea and NG tube was placed and general surgery was consulted. ?DDx IBD such as Crohn's versus mesenteric ischemia versus SBO. ?Abdomen/pelvis CT on 04/28/2024 show markedly abnormal small bowel loops and mildly distended, prominent wall thickening with edema adjacent to multiple small bowel loops. -Abd Xray showed distended small bowel loops. ?DC'd IV Solu-Medrol [04/28/2024?04/29/2024]. ?Patient underwent successful small bowel resection secondary to ischemia and anastomosis. ?Pending patient to have a bowel movement or pass gas in order to start diet. Plan: -CLD, advancing to solid. -IV fluids discontinued. ?Continue Zosyn [04/28/2024?]. ?Stool cultures and an Antibody pending. -Lipid panel, A1c, and echo ordered. -General surgeon consulted, appreciate recommendations. ?GI consulted, appreciate recommendations. ?Will continue to monitor. #Microcytic chronic anemia. ?on admission patient's hemoglobin was 13..9 ?Hemoglobin today was 8.9 most likely due to some blood loss from surgery. Plan: ?will transfuse hemoglobin less than 7. ?Will continue to monitor. #Hx of HTN. ?Held losartan 25 mg daily as patient was hyperkalemic. #Hx of HLD. ?Continue atorvastatin 20 mg p.o. at bedtime. #Incidental finding, pulmonary granuloma. ?5 mm granuloma of right middle lobe. ?Follow-up outpatient. Disposition: Patient seen in med surg, no BM yet, s/p Small bowel resection and anastamosis. Diet: NPO. GI prophylaxis: protonix. DVT prophylaxis: heparin sc. Code: Full code. Plan of care discussed with attending Dr. Valdez. Ronnell Krishnan MD, PGY 2. Disclaimer: This note was dictated by speech recognition. Minor errors in snack steward may be present due to voice recognition software. Attending Provider Attestation/Addendum Patient was seen and evaluated. Daughter at bedside who stated that the patient had significant p.o. intake today. She has no nausea or vomiting. She is afebrile. She has no abdominal pain or distention. She participated with physical therapy. Continue current treatment. Discussed with housestaff
[2024-05-03] MEDS: ACETAMINOPHEN 325 MG TABLET 650 MG PO (20:03)
[2024-05-03] MEDS: ATORVASTATIN CALCIUM 20 MG TABLET PO (20:03)
[2024-05-04] VITALS: BP 117/60; PULSE 83; RESP 18; TEMP 36.7; O2SAT 99
[2024-05-04 04:00] VITALS: BP 127/64; PULSE 69; RESP 18; TEMP 36.8; O2SAT 94
[2024-05-04] MEDS: ACETAMINOPHEN 325 MG TABLET 650 MG PO ×3 (04:01→21:26)
[2024-05-04] MEDS: PIPER/TAZO INJ 3.375 GM in SODIUM CHLORIDE 0.9% (P) 100 ML IV ×2 (05:11→21:26)
[2024-05-04 06:05] LABS: Basophils % (Auto) 0 % (0-2.5); Eosinophils # (Auto) 0.1 Thou/mm3 (0.0-0.5); Eosinophils % (Auto) 2 % (0-10); Hematocrit 23.8 % (36.0-46.0); Immature Granulocytes % (Auto) 1 % (0-0); Immature Granulocytes Auto 0.07 Thou/mm3 (0.00-0.00); Lymphocytes # (Auto) 0.7 Thou/mm3 (1.0-4.8); Lymphocytes % (Auto) 13 % (10-50); Mean Corpuscular HGB Conc 33.6 g/dl (31.0-37.0); Mean Corpuscular Hemoglobin 26.8 pg (25.0-35.0); Mean Corpuscular Volume 80 fL (80-100); Monocytes # (Auto) 0.6 Thou/mm3 (0.0-0.8); Monocytes % (Auto) 10 % (0-12); Neutrophils # (Auto) 4.2 Thou/mm3 (1.8-7.7); Neutrophils % (Auto) 74 % (37-80); Nucleated Red Blood Cell % 0 /100 WBC (0); Platelet Count 211 Thou/mm3 (140-440); RDW Standard Deviation 39.9 fL (36.4-46.3); Red Blood Count 2.98 Miln/mm3 (4.00-5.20); White Blood Count 5.7 Thou/mm3 (3.6-11.0)
[2024-05-04 06:37] LABS: Alanine Aminotransferase 17 U/L (10-49); Albumin, Serum 3.1 gm/dL (3.4-4.8); Albumin/Globulin Ratio 2.1 (1.2-2.2); Alkaline Phosphatase 53 U/L (46-116); Anion Gap 6 (7-16); Aspartate Amino Transferase 14 U/L (0-34); BUN/Creatinine Ratio 33 Ratio (12-20); Bilirubin,Total 0.9 mg/dL (0.3-1.2); Blood Urea Nitrogen 13 mg/dL (9-23); Calcium 8.3 mg/dL (8.3-10.6); Carbon Dioxide 26.1 mMol/L (20.0-31.0); Chloride 106 mMol/L (98-107); Creatinine (Component) 0.4 mg/dL (0.6-1.3); Estimated Creatinine Clearance 137.9 mL/min (>60); Globulin 1.5 gm/dL (2.3-3.5); Glucose 98 mg/dL (74-106); Osmolality,Calculated 275 (275-295); Potassium 3.5 mMol/L (3.4-5.1); Sodium 138 mMol/L (136-145); Total Protein 4.6 gm/dL (5.7-8.2); eGFR > 60 See Note
[2024-05-04 08:00] VITALS: BP 126/63; PULSE 77; PULSE 82; RESP 18; TEMP 36.6; O2SAT 96
[2024-05-04] MEDS: PANTOPRAZOLE 40 MG TABLET PO (08:41)
[2024-05-04 11:37] LABS: Collection Type, Urine Clean Catch
[2024-05-04 11:47] LABS: Bilirubin,Urine Negative (Negative); Blood,Urine Trace (Negative); Clarity,Urine Clear (Clear/Hazy); Color,Urine Lt-Yellow (Lt Yel-Yel); Glucose, Urine Negative (Negative); Ketones,Urine 1+ (Negative); Leukocyte Esterase,Urine Negative (Negative); Nitrite,Urine Negative (Negative); PH,Urine 6.5 (5.0-7.0); Protein,Urine Negative (Neg - Trace); RBC,Urine 9 /hpf (0-3); Squamous Epithelial Cell,Urine < 1 /hpf (0-5); Urobilinogen,Urine Negative mg/dL (0.0-1.0); WBC,Urine 2 /hpf (0-5)
[2024-05-04 12:00] VITALS: BP 120/62; PULSE 85; PULSE 94; RESP 17; TEMP 36.2; O2SAT 98
--- NOTE | 2024-05-04 12:42 | PC.SS ---
SS was informed by Dr. Juárez that patient will be needing a FWW due to being dizzy. SS submitted inquiry for FWW through [employer].
--- NOTE | 2024-05-04 12:50 | ESPR_ITS ---
Documentation for date of: 05/04/24 Subjective Subjective Interval history: Patient was seen at bedside this morning. No overnight events. Patient states that she has been feeling somewhat dizzy when she stands up to walk, but has been using a walker which has helped her a lot. She also had a bowel movement today which was nonbloody. General surgeon was okay with discharge patient, but due to a small drop in hemoglobin will keep patient to be sure that hemoglobin is stable. No other complaints at this time. Exam Vital Signs Temp Pulse Resp BP Pulse Ox O2 Del Method O2 Flow Rate 97.9 F 82 18 126/63 96 Room Air 3 05/04/24 08:00 05/04/24 08:00 05/04/24 08:00 05/04/24 08:00 05/04/24 08:00 05/04/24 08:00 05/03/24 16:00 Narrative Exam General: A/O x3, no acute distress, well-nourished, well-developed Eyes: PERRL, EOMI. Anicteric, vision grossly intact. Ears: No ear pain, no ear discharge, Hearing grossly intact. Nose: No nasal discharge. Mouth/Throat: Dry mucous membranes, no redness, no lesions. Neck: Neck supple, non-tender, no cervical lymphadenopathy. Lungs: Clear PRISCA to auscultation and percussion, No accessory muscle use. Cardio: Normal S1/S2, regular rhythm, no murmurs, no JVD. Abdomen: Soft, no tenderness, no palpable masses, peristalsis present, no guarding or rebound. Surgical scar clean with no drainage. Extremities: Symmetrical, no significant deformities, no peripheral edema , non-tender, peripheral pulses presents. Skin: No rashes, no lesions, warm to touch. Neuro: No focal neurological deficits. motor and sensory intact Psych: Cooperative, appropriate mood and effect. Objective Labs 05/04/24 05:28 05/04/24 05:28 Labs: Laboratory Results - last 24 hr 05/04/24 05/04/24 05:28 11:00 WBC 5.7 RBC 2.98 L Hgb 8.0 L Hct 23.8 L MCV 80 MCH 26.8 MCHC 33.6 RDW Std Deviation 39.9 Plt Count 211 D Neut % (Auto) 74 Lymph % (Auto) 13 [place] % (Auto) 10 Eos % (Auto) 2 Baso % (Auto) 0 Neut # (Auto) 4.2 Lymph # (Auto) 0.7 L [place] # (Auto) 0.6 Eos # (Auto) 0.1 Baso # (Auto) 0.0 Immature Gran # (Auto) 0.07 H Absolute Nucleated RBC 0.00 Immature Gran % 1 H Nucleated RBC % 0 Sodium 138 Potassium 3.5 Chloride 106 Carbon Dioxide 26.1 Anion Gap 6 L BUN 13 Creatinine 0.4 L Estim Creat Clear Calc 137.9 eGFR > 60 BUN/Creatinine Ratio 33 H Glucose 98 Calculated Osmolality 275 Calcium 8.3 Corrected Calcium 9.0 Total Bilirubin 0.9 AST 14 ALT 17 Alkaline Phosphatase 53 Total Protein 4.6 L Albumin 3.1 L Globulin 1.5 L Albumin/Globulin Ratio 2.1 Ur Collection Type Clean Catch Urine Color Lt-Yellow Urine Clarity Clear Urine pH 6.5 Ur Specific [place] 1.020 Urine Protein Negative Urine Glucose (UA) Negative Urine Ketones 1+ A Urine Blood Trace Urine Nitrite Negative Urine Bilirubin Negative Urine Urobilinogen (Auto) Negative Ur Leukocyte Esterase Negative Urine RBC 9 H Urine WBC 2 Ur Squamous Epith Cells < 1 Urine Bacteria None Quality Measures Quality Measures VTE prophylaxis Assessment & Plan Assessment Current Active Medications: Generic Name Dose Route Start Last Admin Trade Name Freq PRN Reason Stop Dose Admin Acetaminophen 650 mg 04/28/24 06:33 05/04/24 04:01 Acetaminophen 325 Mg Tablet PO 05/28/24 06:32 650 mg Q6H PRN Administration Mild Pain 1-3 or Fever >100.4 Atorvastatin Calcium 20 mg 04/28/24 21:00 05/03/24 20:03 Atorvastatin Calcium 20 Mg Tablet PO 05/28/24 20:59 20 mg HS GARRET Administration Heparin Sodium (Porcine) 5,000 unit 04/28/24 06:45 05/04/24 05:08 Heparin Sod Inj 5000 Unit/Ml Vial SC 05/12/24 06:44 Not Given Q8HR GARRET Piperacillin Sod/Tazobactam 100 mls @ 25 mls/hr 05/03/24 14:00 05/04/24 05:11 Sod 3.375 gm/ Sodium Chloride IV 05/05/24 11:29 25 mls/hr Q8HR GARRET Administration Ondansetron HCl 4 mg 04/28/24 06:33 04/30/24 10:44 Ondansetron Inj 2 Mg/Ml Inj 2 Ml IV 05/28/24 06:32 4 mg Q6H PRN Administration NAUSEA OR VOMITING Protocol Pantoprazole Sodium 40 mg 04/28/24 09:00 05/04/24 08:41 Pantoprazole 40 Mg Tablet PO 05/28/24 08:59 40 mg QDAY GARRET Administration Plan 63-year-old female with past medical history of hypertension and hyperlipidemia was admitted to the hospital on 04/28/2024 for intractable abdominal pain and gastroenteritis. #Ischemic bowel s/p resection and anastomosis #Intractable abdominal pain # Leukocytosis ?Patient came in with chief complaint of diffuse abdominal pain rating a 10 out of 10, but no diarrhea or hematochezia. ?Patient states he has been constipated since the day prior to admission ?Given concern for SBO as patient had distended small bowel loops as well as nausea and NG tube was placed and general surgery was consulted. ?DDx IBD such as Crohn's versus mesenteric ischemia versus SBO ?Abdomen/pelvis CT on 04/28/2024 show markedly abnormal small bowel loops and mildly distended, prominent wall thickening with edema adjacent to multiple small bowel loops. -Abd Xray showed distended small bowel loops ?DC'd IV Solu-Medrol [04/28/2024?04/29/2024] ?WBC 5.7 today ?Patient underwent successful small bowel resection secondary to ischemia and anastomosis. -Has had a BM today. Plan: ?Continue Zosyn [04/28/2024?] -General surgeon consulted, appreciate recommendations ?GI consulted, appreciate recommendations ?Will continue to monitor #Hyperkalemia, resolved ?Patient initially came in hypokalemic and received a total of 120 mEq of potassium ?EKG did not show any peaked T waves -Potassium today is 3.5 Plan: ?Will continue to monitor #Microcytic normochromic anemia ?on admission patient's hemoglobin was 13.9 ?Hemoglobin today was 8 Plan: ?will transfuse hemoglobin less than 7 ?Will continue to monitor #Hx of HTN ?Held losartan 25 mg daily as patient was hyperkalemic -BP has been stable druing hospital course #Hx of HLD ?Continue atorvastatin 20 mg p.o. at bedtime #Incidental finding, pulmonary granuloma ?5 mm granuloma of right middle lobe ?Follow-up outpatient Disposition: Patient seen in med surg, no BM yet, s/p Small bowel resection and anastamosis. Diet: Regular GI prophylaxis: protonix DVT prophylaxis: heparin sc Code: Full Case disclosed with Attending Dr. Skip Phillip PGY1 Attending Provider Attestation/Addendum I have examined the patient, reviewed labs and imaging findings, discussed the case with the resident(s), and reviewed entered orders. I agree with the plan of care as outlined in this note, with these additional summaries/recommendations: Patient seen at bedside. No acute overnight events. Patient is postop day 4 status post ex lap with resection of the terminal ileum and primary end-to-end anastomosis with incidental appendectomy. Today patient endorses minimal lightheadedness and we will ambulate patient. Noted drop in hemoglobin from 9.1-8. Discussed with patient that we will monitor overnight and anticipate discharge tomorrow morning 05/05. Patient in agreement. Continue IV Zosyn and pantoprazole. Patient reports pain is currently controlled. Continue to monitor bowel movements and tolerating diet at this time. Repeat hematology panel in AM. Dr. Valdivia
--- NOTE | 2024-05-04 14:40 | PC.SS ---
Rounding note; Patient will possible discharge tomorrow. Walker was delivered at bedside.
[2024-05-04 16:00] VITALS: BP 120/63; PULSE 77; PULSE 92; RESP 22; TEMP 36.6; O2SAT 97
--- NOTE | 2024-05-04 19:34 | PD.IMPROG ---
Documentation for date of: 05/04/24 Subjective Subjective Interval history: Clinically improving Exam Vital Signs Temp Pulse Resp BP Pulse Ox O2 Del Method O2 Flow Rate 97.9 F 92 22 H 120/63 97 Room Air 3 05/04/24 16:00 05/04/24 16:00 05/04/24 16:00 05/04/24 16:00 05/04/24 16:00 05/04/24 16:00 05/03/24 16:00 Objective Labs 05/04/24 05:28 05/04/24 05:28 Labs: Laboratory Results - last 24 hr 05/04/24 05/04/24 05:28 11:00 WBC 5.7 RBC 2.98 L Hgb 8.0 L Hct 23.8 L MCV 80 MCH 26.8 MCHC 33.6 RDW Std Deviation 39.9 Plt Count 211 D Neut % (Auto) 74 Lymph % (Auto) 13 [place] % (Auto) 10 Eos % (Auto) 2 Baso % (Auto) 0 Neut # (Auto) 4.2 Lymph # (Auto) 0.7 L [place] # (Auto) 0.6 Eos # (Auto) 0.1 Baso # (Auto) 0.0 Immature Gran # (Auto) 0.07 H Absolute Nucleated RBC 0.00 Immature Gran % 1 H Nucleated RBC % 0 Sodium 138 Potassium 3.5 Chloride 106 Carbon Dioxide 26.1 Anion Gap 6 L BUN 13 Creatinine 0.4 L Estim Creat Clear Calc 137.9 eGFR > 60 BUN/Creatinine Ratio 33 H Glucose 98 Calculated Osmolality 275 Calcium 8.3 Corrected Calcium 9.0 Total Bilirubin 0.9 AST 14 ALT 17 Alkaline Phosphatase 53 Total Protein 4.6 L Albumin 3.1 L Globulin 1.5 L Albumin/Globulin Ratio 2.1 Ur Collection Type Clean Catch Urine Color Lt-Yellow Urine Clarity Clear Urine pH 6.5 Ur Specific [place] 1.020 Urine Protein Negative Urine Glucose (UA) Negative Urine Ketones 1+ A Urine Blood Trace Urine Nitrite Negative Urine Bilirubin Negative Urine Urobilinogen (Auto) Negative Ur Leukocyte Esterase Negative Urine RBC 9 H Urine WBC 2 Ur Squamous Epith Cells < 1 Urine Bacteria None Impressions Impression: # Status post resection of the terminal ileum and primary anastomosis for ischemic small bowel Continue current management Assessment & Plan A&P Narrative # Acute onset of abdominal pain with abnormal CT scan of the abdomen pelvis suggestive of regional ileitis rather infectious or inflammatory unknown at the moment Plan Clear liquid diet IV Zosyn IV Solu-Medrol Pain control as necessary ANCA antibody Stool for culture and sensitivity Replace potassium Once patient is improves might need colonoscopy with intubation of the terminal ileum to get biopsies of the terminal ileum to establish a diagnosis Recommend surgical consultation in case the patient deteriorates may need surgical intervention at that time Other medical problems include # Essential hypertension # Hyperlipidemia Thank you once again for the opportunity to participate in the care of this patient Time Spent With Patient Time: Total time spent is greater than 50% in coordination of care (as documented) at patient's floor/unit and/or counseling patient:
[2024-05-04 20:00] VITALS: BP 116/64; PULSE 87; PULSE 92; RESP 18; TEMP 36.2; O2SAT 96
[2024-05-04] MEDS: ATORVASTATIN CALCIUM 20 MG TABLET PO (21:26)
[2024-05-05] VITALS: BP 126/63; PULSE 88; RESP 16; TEMP 36.2; O2SAT 95
[2024-05-05 04:00] VITALS: BP 122/60; PULSE 86; RESP 18; TEMP 36.3; O2SAT 97
[2024-05-05] MEDS: ACETAMINOPHEN 325 MG TABLET 650 MG PO (04:12)
[2024-05-05] MEDS: PIPER/TAZO INJ 3.375 GM in SODIUM CHLORIDE 0.9% (P) 100 ML IV (05:03)
[2024-05-05 06:44] LABS: Basophils % (Auto) 0 % (0-2.5); Eosinophils # (Auto) 0.2 Thou/mm3 (0.0-0.5); Eosinophils % (Auto) 3 % (0-10); Hematocrit 26.9 % (36.0-46.0); Immature Granulocytes % (Auto) 2 % (0-0); Immature Granulocytes Auto 0.12 Thou/mm3 (0.00-0.00); Lymphocytes % (Auto) 16 % (10-50); Mean Corpuscular HGB Conc 32.3 g/dl (31.0-37.0); Mean Corpuscular Hemoglobin 26.4 pg (25.0-35.0); Mean Corpuscular Volume 82 fL (80-100); Monocytes # (Auto) 0.6 Thou/mm3 (0.0-0.8); Monocytes % (Auto) 10 % (0-12); Neutrophils # (Auto) 4.2 Thou/mm3 (1.8-7.7); Neutrophils % (Auto) 69 % (37-80); Nucleated Red Blood Cell % 0 /100 WBC (0); Platelet Count 272 Thou/mm3 (140-440); RDW Standard Deviation 41.1 fL (36.4-46.3); White Blood Count 6.1 Thou/mm3 (3.6-11.0)
[2024-05-05 06:48] LABS: Hemoglobin 8.7 g/dL (12.0-16.0)
[2024-05-05 06:55] LABS: Alanine Aminotransferase 31 U/L (10-49); Albumin, Serum 3.6 gm/dL (3.4-4.8); Alkaline Phosphatase 70 U/L (46-116); Anion Gap 7 (7-16); Aspartate Amino Transferase 41 U/L (0-34); BUN/Creatinine Ratio 28 Ratio (12-20); Blood Urea Nitrogen 11 mg/dL (9-23); Calcium 8.9 mg/dL (8.3-10.6); Calcium (Corrected) 9.2 mg/dL (8.5-10.1); Carbon Dioxide 25.7 mMol/L (20.0-31.0); Chloride 105 mMol/L (98-107); Creatinine (Component) 0.4 mg/dL (0.6-1.3); Estimated Creatinine Clearance 137.9 mL/min (>60); Globulin 1.8 gm/dL (2.3-3.5); Glucose 109 mg/dL (74-106); Osmolality,Calculated 276 (275-295); Potassium 3.9 mMol/L (3.4-5.1); Sodium 138 mMol/L (136-145); Total Protein 5.4 gm/dL (5.7-8.2); eGFR > 60 See Note
[2024-05-05 07:30] VITALS: BP 117/61; PULSE 84; RESP 18; TEMP 36.3; O2SAT 97
[2024-05-05 08:00] VITALS: PULSE 84
[2024-05-05] MEDS: PANTOPRAZOLE 40 MG TABLET PO (09:26)
--- NOTE | 2024-05-05 09:38 | ESDS_ITS ---
Planned Discharge Date 05/05/24 DS: Providers Provider Date of admission: 04/28/24 06:33 Primary care physician: Malcom Buckner MD Admitting Provider: Saji Masterson MD Attending Provider on Admission: Coleman Valdez MD Consults: 04/28/24 05:53 Consult to Gastroenterology Stat Comment: ileitis Consulting Provider: Dalton Bautista 04/29/24 14:25 Consult to General Surgery Routine Comment: Consulting Provider: Oneida Figueroa 05/01/24 08:09 PT [Referral Physical Therapy] Stat Comment: Physician Instructions: Instructions: surgery pt Attending Provider on DC: Ezequiel Valdivia MD Discharging Provider: Ezequiel Valdivia MD DS: Diagnosis Problem List Completed Was Problem List Reviewed/Reconciled?: Yes Hospital Course Hospital Course Hospital course: 63-year-old female with past medical history of hypertension and hyperlipidemia was admitted to the hospital on 04/28/2024 for intractable abdominal pain which was found to be ischemic bowel and was resected. In the ED patient had complaints of diffuse abdominal pain a 10 out of 10. Initially patient was afebrile and mildly hypertensive. Initial labs were relevant for leukocytosis, and hypokalemia. Initial imaging included abdomen/pelvis CT which showed markedly abnormal small bowel loops mildly distended with prominent wall thickening and edema. Initially patient was thought to have some inflammatory bowel disease and GI specialist was consulted and recommended to start the patient on IV antibiotics, steroids, clear liquid diet, and hold off on colonoscopy until patient was more stable. On the second day of admission patient developed hyperkalemia, but EKG did not show any peaked T waves and she was given insulin, calcium, and Kayexalate after GI stated was fine to give patient something for her constipation. On second day of admission patient had a nausea and vomiting episode therefore abdominal x-ray was ordered which was concerning for SBO therefore patient was placed n.p.o. and an NG tube was placed with intermittent suction. General surgeon was consulted and ordered a small bowel series. On the third day of admission general surgeon decided to do an ex lap as the small bowel series will probably delay patient care and took patient to the OR. In the OR patient was found to have ischemic bowel (terminal ileum) which was necrotic and was resected with subsequent anastomosis. Patient's appendix was also removed to prevent any postop diagnostic problems. After surgery patient remained stable and given that she had no risk factors other than hyperlipidemia and hypertension, but no prior abdominal surgeries to develop mesenteric ischemia and echo was ordered which showed an EF of 60 to 65%. Patient passed a bowel movement on postop day 3 with no blood and only had mild complaints of abdominal pain, but subsided with Tylenol. Patient's hemoglobin remained stable after surgery and potassium and other electrolytes were repleted as necessary. At the time of discharge patient was clinically stable to be discharged home. Discharge plan: ?Please follow-up with DR. Pollard in his office on TuesdayMay 11. and call him if see any s/s of drainage. - Pt. can resume regular Diet. -Please follow up with filing machine operator in 10 to 14 days ?Please follow-up with primary care physician in 7 days ?Recommend to follow-up with chest CT in 6 months as outpatient for incidental finding of pulmonary granuloma -We have stopped your losartan as your blood pressure has been stable in the hospital. -We have started you on [place] 5/325mg, take 1 tablet every 8 hours as needed for pain. ?Please continue taking all other home medications as prescribed ?Please return to the ER if symptoms persist or worsen or if you develop any fevers or increased pain. Problem list: #Ischemic bowel s/p resection and anastomosis #Intractable abdominal pain #Leukocytosis #Hyperkalemia, resolved #Incidental finding, pulmonary granuloma #Microcytic normochromic anemia #Hx of HTN #Hx of HLD Case disclosed with Attending Dr. Skip Phillip PGY1 Status at Discharge Overall status at discharge: patient is progressing back to baseline Time Spent with Patient Time attestation: Total time spent providing and/or coordinating discharge services:> 35 min Exam Vital Signs Temp Pulse Resp BP Pulse Ox O2 Del Method O2 Flow Rate 97.3 F 84 18 117/61 97 Room Air 3 05/05/24 07:30 05/05/24 07:30 05/05/24 07:30 05/05/24 07:30 05/05/24 07:30 05/05/24 07:30 05/03/24 16:00 Narrative Exam General: A/O x3, no acute distress, well-nourished, well-developed Eyes: PERRL, EOMI. Anicteric, vision grossly intact. Ears: No ear pain, no ear discharge, Hearing grossly intact. Nose: No nasal discharge. Mouth/Throat: Dry mucous membranes, no redness, no lesions. Neck: Neck supple, non-tender, no cervical lymphadenopathy. Lungs: Clear PRISCA to auscultation and percussion, No accessory muscle use. Cardio: Normal S1/S2, regular rhythm, no murmurs, no JVD. Abdomen: Soft, no tenderness, no palpable masses, peristalsis present, no guarding or rebound. Surgical scar clean with no drainage. Extremities: Symmetrical, no significant deformities, no peripheral edema , non-tender, peripheral pulses presents. Skin: No rashes, no lesions, warm to touch. Neuro: No focal neurological deficits. motor and sensory intact Psych: Cooperative, appropriate mood and effect. Discharge Plan Plan Patient Disposition: HOME (Self Care) Health Concerns: ?Please follow-up with DR. Pollard in his office on TuesdayMay 11. and call him if see any s/s of drainage. - Pt. can resume regular Diet. -Please follow up with filing machine operator in 10 to 14 days ?Please follow-up with primary care physician in 7 days ?Recommend to follow-up with chest CT in 6 months as outpatient for incidental finding of pulmonary granuloma -We have stopped your losartan as your blood pressure has been stable in the hospital. -We have started you on [place] 5/325mg, take 1 tablet every 8 hours as needed for pain. ?Please continue taking all other home medications as prescribed ?Please return to the ER if symptoms persist or worsen or if you develop any fevers or increased pain. Prescriptions/Referrals Prescriptions/Med Rec: New hydrocodone-acetaminophen 5-325 mg tablet 1 tab PO Q8H MDD 3 tabs PRN (Reason: pain) 3 Days Qty: 9 0RF Continued atorvastatin 20 mg tablet 20 mg PO HS Patient Comments: TAKE 1 TABLET BY MOUTH EVERY DAY IN THE EVENING Discontinued losartan 25 mg tablet 25 mg PO QDAY Patient Comments: TAKE 1 TABLET BY MOUTH EVERY DAY Referrals: Malcom Buckner MD [Primary Care Provider] - Patient/Caregiver Discharge Instructions Education Materials: Surgery Anesthesia After, Exploratory Laparotomy, Colonoscopy, Preventing Surgical Site Infections Print Language: Macedonian Stand Alone Forms: [employer] Award Info., Patient Portal Info Letter Discharge Order Discharge Orders: Discharge (Routine); Ordered 05/05/24 Ordered By: Conrado Phillip Quality Discharge Quality Measures VTE prophylaxis MD Attestestation MD Attestation I have examined the patient, reviewed labs and imaging findings, discussed the case with the resident(s), and reviewed entered orders. I agree with the plan of care as outlined in this note. Dr. Valdivia
--- NOTE | 2024-05-05 11:26 | PC.SS ---
Addendum entered by Diana Luna 05/05/24 13:52: BSC has been delivered via [facility] Original Note: 3 in 1 BSC ordered through [facility] via [facility]
[2024-05-05 12:00] VITALS: BP 106/61; PULSE 93; RESP 18; TEMP 36.3; O2SAT 97
[2024-05-07 07:00] LABS: ANCA Screen NEGATIVE (NEGATIVE); Myeloperoxidase Ab <1.0 AI (<1.0); Proteinase-3 Ab <1.0 AI (<1.0)
== END 2024-05-05 13:48 | disposition home or self-care (01) | DRG 230 ==
LOC: SERX 06:00 → SERHOLD 07:30 → S3SX 08:42
PROVIDERS: Internal Medicine; Specialist; Student in an Organized Health Care Education/Training Program; Surgery; Admitting Provider Student in an Organized Health Care Education/Training Program; Emergency Provider Emergency Medicine; PCP Family Medicine; Visit Provider Internal Medicine
PROC: 0DBB0ZZ Excision of Ileum, Open Approach (ICD-10-PCS; CPT 49000; principal; 2024-04-30 15:00)
DX: K50.012 Crohn's disease of small intestine with intestinal obstruction (principal); I10 Essential (primary) hypertension; E78.5 Hyperlipidemia, unspecified; E87.5 Hyperkalemia; J84.10 Pulmonary fibrosis, unspecified; D50.9 Iron deficiency anemia, unspecified; I96 Gangrene, not elsewhere classified; E87.6 Hypokalemia; K55.069 Acute infarction of intestine, part and extent unspecified; K55.029 Acute infarction of small intestine, extent unspecified
CPT/HCPCS: 36415; 74018; 74177; 74250; 80048; 80053; 80061; 80069; 80307; 81001; 82150; 82270; 83036; 83605; 83690; 83735; 84100; 84132; 84145; 85014; 85018; 85025; 85652; 86021; 86036; 86140; 93005; 93306; 94644; 94645; 94664; 94762; 96365; 96372; 96375; 97162; 99285; A4217; A4649; J0131; J0613; J1100; J1643; J1815; J2270; J2405; J2543; J2704; J2710; J2765; J2919; J3010; J3490; J7030; J7050; J7070; P9045; Q9967; A9270; J1596; J1644

== ENCOUNTER 2024-09-27 10:05 | Outpatient (AMB) | payer MEDICAID, SELFPAY ==
[2024-09-27 10:31] VITALS: BP 150/79; PULSE 87; RESP 19; TEMP 36.1; O2SAT 96; BMI 20.2
--- NOTE | 2024-09-27 10:31 | PD.ORTHCLVIS ---
Vital signs 09/27/24 10:31 Height 1.55 m Height Method Measured Weight 48.619 kg Weight Measurement Method Standing Scale BMI 20.2 BP 150/79 H Blood Pressure Source Automatic Cuff Blood Pressure Location Right Upper Arm Position Sitting Respiration 19 Pulse 87 Pulse Source Monitor Temp 96.9 F Temp Source Temporal Artery Scan Pulse Oximetry (%) 96 Oxygen Delivery Method Room Air Med/Allergies Allergies & Medications Allergies No Known Allergies Allergy (Verified 09/27/24 10:32) Medication Reconciliation atorvastatin 20 mg tablet 20 mg PO HS 05/04/23 [History Confirmed 09/27/24] Exam Exam Patient is in no acute distress and is cooperative with the examination today. Breathing is nonlabored. Patient has a normal mood and affect. The patient has a gait that is nonantalgic Bilateral extremities were evaluated and demonstrates sensation intact to light touch. Palpable pedal pulses are present. No significant edema is present. Bilateral hips were examined. The patient has no pain with log roll of the hips. Internal rotation to 30 degrees and external rotation to 30 degrees is painless. Negative FADIR. Left knee was examined today. The left knee is in reasonable alignment. Range of motion from 0-120 degrees. Knee is stable to varus and valgus as well as AP translation with <5mm. Patient has a negative McMurrays. There is no pain with patellofemoral compression and no crepitus noted. The knee is nontender to palpation. The right knee was also examined. The right knee is in neutral alignment. Range of motion from 0-120 degrees. Knee is stable to varus and valgus as well as AP translation with <5mm. Patient has a negative McMurrays. There is no pain with patellofemoral compression and no crepitus noted. The knee is nontender to palpation diffusely. Assessment and Plan Problem List (1) Bakers cyst: Status: Acute Plan: Patient is a 63-year-old female with a fall 3 weeks ago. She was told her x-ray is normal. I do not have a copy of it. 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 We recommend anti-inflammatories. We will get x-rays should her pain worsen but it is dramatically improved. We can see her on an as-needed basis Office Procedures GNS Level of Care Nursing/Assessment Patient Status: Established Patient Nursing Assessment/Reassesment: Medication Reconciliation, Update PMH in EMR and Vital Signs Coordination of Care: Complex Care and Chronic Disease 1-5, Education Complex Pt/Fam, Consent,records obtained, informed consent, Lab and Imaging orders, Results/Orders obtained and Staff clarify orders Established Patient Charge Established Patient Point Assignment: 110 Established Patient Point Charge: EP Level 3 (80-115) MA Intake Visit Data Collection New Patient or Established: Established Patient (seen at [facility] within 3 years) Reason for Visit:: RIGHT KNEE CYST Seen by Clinical Staff ONLY (RN/MA): No Verbal consent obtained for Telemed visit?: No Retail Cashier Associate Required: Yes PCP or OBGYN visit in last 3 months: Yes Hx Now: No Do You Feel Safe at Home: Yes Authorities Contacted: N/A Questionairres Past Medical History Past Medical History Have you ever been diagnosed with any of the following: Neurological Problems Seizures: No Cardiology Problems Hypercholesterolemia: Yes Congestive Heart Failure: No Hypertension: Yes Respiratory Problems Chronic Obstructive Pulmonary Disease (COPD): No Asthma: No Genital/Urinary Problems Renal Disease: No Musculoskeletal Problems Arthritis: Yes Endocrine Problems Diabetes Mellitus Type 1: No Diabetes Mellitus Type 2: Yes (Pt reports Per-diabetic) Blood Problems Sickle Cell Disease: No Other Problems Blood Transfusions: No Anesthesia Reactions: No Chicken Pox: Yes Measles: Yes Mumps: Yes Cancer: No Subjective Visit Visit for: new patient and knee Immunization / Flu Flu Vaccine in the Last 12 Months: No Flu Vaccine Exclusion Criteria: No Exclusion Criteria History of Present Illness Chief complaint: RIGHT KNEE CYST Date of injury / onset of symptoms: 2 WEEKS Patient is a 63-year-old female with a fall 2 to 3 weeks ago. The pain has improved. She had x-[facility] at [facility] and was told it was normal. She also has a Barker's cyst with no change in size. The Barker's cyst is not painful. She had An ultrasound to confirm this as well Personal History Red flag PMH: BMI BMI Counceling provided: Yes Pain Pain level (0-10): 3 Pain duration: WITH MOVEMENT Pain location: anterior Pain quality: aching Pain timing: increases with activity Associated signs & symptoms: none Ambulatory data Ambulatory device: none Treatments Improvement with previous injections: No Improvement with PT: No Improvement with NSAIDS: no Review of Systems Review of Systems: All systems negative unless otherwise noted in HPI.
== END 2024-09-27 10:54 | disposition home or self-care (01) ==
LOC: HODSRG 10:05
PROVIDERS: PCP Family Medicine; Referring Provider Family Medicine; Supervising Provider Orthopaedic Surgery Adult Reconstructive Orthopaedic Surgery; Visit Provider Orthopaedic Surgery Adult Reconstructive Orthopaedic Surgery
DX: M71.21 Synovial cyst of popliteal space [Baker], right knee (principal); I10 Essential (primary) hypertension; E78.00 Pure hypercholesterolemia, unspecified; R73.03 Prediabetes
CPT/HCPCS: 99213; G0463